=== PATIENT | female | born 1965 | race Caucasian/White ===

== ENCOUNTER → 2017-10-31 | Day surgery (SDC) | payer OTHER ==
[2017-10-30 12:31] LABS: BASOPHILS % 0.5 % (0.0-1.0); EOSINOPHILS # (AUTO) 0.1 (0.0-0.4); HEMATOCRIT 39.6 % (34.2-44.1); HEMOGLOBIN 13.3 g/dL (12.0-16.0); LYMPHOCYTES # (AUTO) 1.3 (1.0-3.2); LYMPHOCYTES % 22.2 % (18.0-39.1); MEAN CORPUSCULAR HGB CONC 33.6 g/dL (31-35); MEAN CORPUSCULAR VOLUME 92.3 fL (81-99); MONOCYTES # (AUTO) 0.6 (0.2-0.8); MONOCYTES % 9.1 % (4.4-11.3); NEUTROPHILS # (AUTO) 4.1 (2.1-6.9); PLATELET COUNT 241 x10e3/uL (140-360); RED BLOOD COUNT 4.29 x10e6/uL (3.6-5.1)
[2017-10-30 12:48] LABS: INR 0.96
[2017-10-30 12:49] LABS: PARTIAL THROMBOPLASTIN TIME 29.5 seconds (23.8-35.5)
[2017-10-30 12:59] LABS: ALANINE AMINOTRANSFERASE 13 IU/L (0-55); ALBUMIN 4.3 g/dL (3.5-5.0); ALBUMIN/GLOBULIN RATIO 1.2 (0.8-2.0); ALKALINE PHOSPHATASE 79 IU/L (40-150); ANION GAP 13.5 mmol/L (8-16); BLOOD UREA NITROGEN 10 mg/dL (7-26); BUN/CREATININE RATIO 13 (6-25); CALCIUM 10.2 mg/dL (8.4-10.2); CARBON DIOXIDE 28 mmol/L (22-29); CHLORIDE 103 mmol/L (98-107); CREATININE, SERUM 0.79 mg/dL (0.57-1.11); EST GLOMERULAR FILTRATION RATE > 60 ML/MIN (60-); GLUCOSE 93 mg/dL (74-118); POTASSIUM 4.5 mmol/L (3.5-5.1); SODIUM 140 mmol/L (136-145)
[~2017-10-31] MED LIST: ACETAMINOPHEN 1000 MG/100 ML 100 ML IV ONE; ACETAMINOPHEN 1000 MG/100 ML IV ONE; AMBIEN5 MG PO; BACITRACIN 50,000 UNIT VIAL ONE; BUPIVACAINE 0.25% 30ML SDV INJ ONE; CALCIUM 600 +1 EAC2 PO; CEFAZOLIN SOD 1 GM VIAL ONE; CYCLOBENZAPRINE5 MG PO; DEXAMETHASONE SOD PHOS INJ 4 MG/ML VIAL ONE; DIPHENHYDRAMINE HCL INJ 50 MG/ML VIAL ONE; EPINEPHRINE HCL INJ 1 MG/ML AMP ONE; FENTANYL CITRATE/PF 100MCG/2 ML INJ ONE; HYDROMORPHONE 1MG/1ML INJ ONE; LIDOCAINE HCL 1% 30ML-PF VIAL ONE; LIDOCAINE HCL 2% LOCAL INJ 5 ML SDV VIAL INJ ONE; MEPERIDINE HCL INJ 50 MG/ML INJ ONE; MIDAZOLAM HCL 2 MG/2 ML VIAL ONE; NUCYNTA50 MG PO; ONDANSETRON HCL INJ 2 MG/ML VIAL ONE; PROPOFOL IV EMULSION 10 MG/ML 20 ML VIAL ONE; SEVOFLURANE INHAL SOLN 250 ML PEN BTL ONE; XANAX0.5 MG PO
--- NOTE | 2017-11-03 13:37 | Operative Report ---
DATE OF PROCEDURE: October 31, 2017 PREOPERATIVE DIAGNOSES 1. History of breast cancer. 2. Acquired absence of bilateral breasts. 3. Capsular contracture, right breast. POSTOPERATIVE DIAGNOSES 1. History of breast cancer. 2. Acquired absence of bilateral breasts. 3. Capsular contracture, right breast. PROCEDURES PERFORMED 1. Exchange of bilateral tissue expanders with permanent cohesive silicone gel breast implants, [place] mammary gel, extra smooth, high profile extra, 560 mL. SN number on the right [id number]. SN number on the left [id number]. 2. Bilateral capsulotomies. 3. Revision of bilateral breast reconstruction. ANESTHESIA: General endotracheal. INDICATIONS FOR SURGERY: This is a 52-year-old female who was diagnosed with breast cancer last year, and underwent bilateral mastectomies and immediate reconstruction with tissue expanders and AlloDerm. The patient subsequently had radiation to the right breast, and is currently presenting for exchange of bilateral tissue expanders with permanent cohesive silicone gel breast implants, bilateral capsulotomies and revision of bilateral breast reconstruction. The risks, alternatives and possible complications of the above procedure were explained to the patient. These include, but are not limited to bleeding, infection, scarring, skin flap necrosis, capsule contracture, breast asymmetry, exposure or failure of silicone cohesive gel implants, wound dehiscence, unsatisfactory aesthetic result, and possible need for further surgery. The patient had an opportunity to ask questions and have her questions answered, and agreed to proceed with the proposed procedure. PROCEDURE IN DETAIL: The patient was marked in the preoperative holding area by Dr. Espinosa. She was then taken to the operating room and placed supine on the operating table. After adequate general anesthesia, the patient's bilateral breasts were prepped and draped in the usual surgical fashion. Attention was then turned first to the patient's right breast, which was the breast that had the radiation and also had extensive capsular contracture on that side. An incision was made along the previous mastectomy incision with a #15 blade. Tissue was dissected down to breast capsule with the help of the Bovie. The tissue wire mesh filter fabricator was deflated and removed. Extensive medial and superior capsulotomy was performed on the right breast capsule with the help of the Bovie, Isaiah and Norman retractor, as well as headlight. A portion of the breast capsule on the right side had to be removed because it was extremely dense in order to allow the pocket to expand and accommodate the new silicone gel implant. The removed capsule was sent to pathology for permanent. The breast pocket was irrigated with normal saline with antibiotic solution and checked for hemostasis. Revision of right breast reconstruction was performed by closing part of the pocket that had extended laterally into the axilla with interrupted 2-0 PDS sutures. After the revision of the right breast reconstruction, a sizer was placed in the breast pocket to ensure that it can accommodate the new silicone gel breast implant. A 560 mL cohesive silicone gel breast implant, extra, was then placed in the pocket. Attention was turned to the opposite breast. A similar procedure was performed thereby making an incision along the mastectomy incision with a #15 blade deflating and removing the tissue wire mesh filter fabricator, and then extensive medial and superior capsulotomy was performed with the help of the Isaiah Mantilla and Norman retractor, as well as headlight. Revision of left breast reconstruction was then performed by placing a row of interrupted 2-0 PDS sutures to close the lateral breast pocket, and ensure symmetry between the 2 breasts since the breast pocket was more stretched on the left side. The breast pocket was then irrigated with normal saline with antibiotic solution and checked for hemostasis. The 560 mL mammary silicone gel cohesive implant, extra, was then placed in the pocket. The patient was placed in the sitting position, and the 2 breasts were checked for symmetry. They appeared to be symmetric. The breast pocket was then closed on both sides with 2 layers of interrupted 3-0 Vicryl sutures, and a running subcuticular 3-0 PDS suture. At the end of the case, the 2 breasts appeared to be symmetric. All skin flaps appeared viable. Xeroform was placed along both incisions. Both breasts were covered with ABD pads and a surgical bra was placed on the patient. She tolerated the procedure well. There were no immediate complications. The needle and instrument count was correct at the end of the case. She was transferred extubated to the recovery room. Job#: [id number] [id number]
== END | disposition home or self-care (01) ==
LOC: OR 05:44
PROVIDERS: ATTEND Plastic Surgery
DX: T85.44XA Capsular contracture of breast implant, initial encounter (principal); Z85.3 Personal history of malignant neoplasm of breast; Z90.13 Acquired absence of bilateral breasts and nipples; G43.909 Migraine, unspecified, not intractable, without status migrainosus; F41.9 Anxiety disorder, unspecified; Y83.4 Other reconstructive surgery as the cause of abnormal reaction of the patient, or of later complication, without mention of misadventure at the time of the procedure; Z91.048 Other nonmedicinal substance allergy status; Z01.810 Encounter for preprocedural cardiovascular examination; Z01.812 Encounter for preprocedural laboratory examination; Z92.3 Personal history of irradiation; Z98.1 Arthrodesis status
CPT/HCPCS: 19342; 36415; 80053; 84702; 85025; 85610; 85730; 88304; 93005; J0690; J1100; J1170; J1200; J2001; J2175; J2250; J2405; J0171

== ENCOUNTER 2018-04-03 09:08 | Observation (INO) | payer OTHER ==
[~2018-04-03] VITALS: Ht 162.6 cm; Wt 76.2 kg
--- OUTSIDE RECORDS SUMMARY | 2018-04-03 07:35 | XMS REPORT | Continuity of Care Document ---
Author Author [facility] Interface Address Unknown Phone Unavailable Problems Problem Status Onset Date Classification Date Reported Comments Source UNK Active 12/31/2016 [facility] N63 - UNSPECIFIED LUMP IN BREAST Active 06/18/2016 [facility] BACK PAIN, 722.52 Active 05/04/2013 [facility] SENT BY DOCTOR Active 09/19/2012 [facility] Anxiety Active Problem 03/08/2017 [facility] FH: mastectomy Active Problem 03/08/2017 [facility] Headache Active Problem 03/08/2017 [facility] Breast cancer Active Problem 03/08/2017 [facility] Medications Medication Details Route Status Patient Instructions Ordering Provider Order Date Source Ancef 2 gm, 100 mL, Route: IVPB, Drug form: INJ, Q8H, Dosing Weight 75, kg, Start date: 01/17/17 20:00:00 CDT, Duration: 1 day, Stop date: 01/18/17 12:00:00 CDT, ABX Indication: Surgical ProphylaxisNotes: Same as: Ancef No Longer Active 01/18/2017 [facility] Senokot S 1 tab, Route: PO, Drug Form: TAB, Dosing Weight 75, kg, BID, Start date: 01/17/17 17:00:00 CDT, Duration: 30 day, Stop date: 02/16/17 9:00:00 CSTNotes: (Same as Senokot-S) Equiv. to Dacia-Colace. No Longer Active 01/17/2017 [facility] Valium 5 mg, 1 tab, Route: PO, Drug form: TAB, Q8H, Dosing Weight 75, kg, Start date: 01/17/17 16:00:00 CDT, Duration: 30 day, Stop date: 02/16/17 8:00:00 CSTNotes: (Same as: Valium) No Longer Active 01/17/2017 [facility] morphine Sulfate 4 mg, 1 mL, Route: IVP, Drug form: SOLN, Q2H, PRN Pain Score 7-10, Start date: 01/17/17 15:33:00 CDT, Duration: 30 day, Stop date: 02/16/17 15:32:00 CSTNotes: (Same as:MORPhine Sulfate) No Longer Active 01/17/2017 [facility] JÚNIOR flumazenil 0.2 mg, Route: IVP, PRN, Dosing Weight 75, kg, PRN Benzodiazepine Reversal, Initial dose, Start date: 01/17/17 14:30:00 CDT, Duration: 30 day, Stop date: 02/16/17 13:29:00 VISUAL DISPLAY MANAGER [facility], Route: IVP, Q2MIN, Dosing Weight 75, kg, PRN Narcotic Reversal, Start date: 01/17/17 14:30:00 CDT, Duration: 8 doses or times, Stop date: Limited # of times Inactive [facility] 12.5 mg, Route: IVP, Q30Min, Dosing Weight 75, kg, PRN Other -See Comment, For shivering, Start date: 01/17/17 14:30:00 CDT, Duration: 2 doses or times, Stop date: Limited # of times Inactive [facility]/17[facility] mg, Route: IVP, ONCE, Dosing Weight 75, kg, PRN Nausea & Vomiting, Start date: 01/17/17 14:30:00 CDT Inactive 01/17/2017 [facility] promethazine 6.25 mg, Route: IVPB, ONCE, Dosing Weight 75, kg, PRN Nausea & Vomiting, Start date: 01/17/17 14:30:00 CDT Inactive [facility] HYDR[facility]orphone 0.5 mg, Route: IVP, Q5Min, Dosing Weight 75, kg, PRN Pain Score 7-10, Start date: 01/17/17 14:30:00 CDT, Duration: 4 doses or times, Stop date: Limited # of times Inactive [facility] fenta[facility]L 50 microgram, Route: IVP, Q5Min, Dosing Weight 75, kg, PRN Pain Score 7-10, Priority: Routine, Start date: 01/17/17 14:30:00 CDT, Duration: 2 doses or times, Stop date: Limited # of times Inactive 01/17/2017 [facility] oxyCODONE 5 mg, Route: PO, Drug form: TAB, Q4H, Dosing Weight 75, kg, PRN Pain Score 4-6, Start date: 01/17/17 14:30:00 CDT, Duration: 30 day, Stop date: 02/16/17 14:29:00 VISUAL DISPLAY MANAGER Inactive 01/17/2017 [facility] hydrALAZINE 10 mg, Route: IVP, Q20Min, Dosing Weight 75, kg, PRN Elevated BP, Start date: 01/17/17 14:30:00 CDT, Duration: 2 doses or times, Stop date: Limited # of times Inactive 01/17/2017 [facility] labetalol 10 mg, Route: IVP, Q5Min, Dosing Weight 75, kg, PRN Elevated BP, Start date: 01/17/17 14:30:00 CDT, Duration: 5 doses or times, Stop date: Limited # of times Inactive 01/17/2017 [facility] morphine Sulfate 2 mg, Route: IVP, Q5Min, Dosing Weight 75, kg, PRN Pain Score 4-6, Start date: 01/17/17 14:30:00 CDT, Duration: 5 doses or times, Stop date: Limited # of times Inactive 01/17/2017 [facility] neostigmine (ANES) Route: IV, Drug form: INJ, ONCE, Stop date: 01/17/17 14:20:00 CDT Inactive 01/17/2017 [facility] dexamethasone (ANES) Route: IV, Drug form: INJ, ONCE, Stop date: 01/17/17 14:16:00 CDT Inactive 01/17/2017 [facility] ondansetron (ANES) Route: IV, Drug form: INJ, ONCE, Stop date: 01/17/17 14:16:00 CDT Inactive 01/17/2017 [facility] acetaminophen-hydrocodone 325 mg-5 mg oral tablet 2 tab, Route: PO, Drug Form: TAB, Dosing Weight 75, kg, Q4H, PRN Pain Score 4-6, Start date: 01/17/17 13:54:00 CDT, Duration: 30 day, Stop date: 02/16/17 13:53:00 CSTNotes: (Same as: [place] 325/5) Do not exceed 4gm/day of acetaminophen. No Longer Active 01/17/2017 [facility] morphine Sulfate 2 mg, 1 mL, Route: IVP, Drug form: SOLN, Q2H, Dosing Weight 75, kg, PRN Pain Score 4-6, Start date: 01/17/17 13:51:00 CDT, Duration: 30 day, Stop date: 02/16/17 13:50:00 VISUAL DISPLAY MANAGER No Longer Active 01/17/2017 [facility] acetaminophen 650 mg, 2 tab, Route: PO, Drug form: TAB, Q4H, Dosing Weight 75, kg, PRN For Temp > 100.4 F, Start date: 01/17/17 13:26:00 CDT, Duration: 30 day, Stop date: 02/16/17 13:25:00 CSTNotes: Do not exceed 4 gm/day. (Same as: Tylenol) No Longer Active 01/17/2017 [facility] ondansetron 4 mg, 2 mL, Route: IVP, Drug form: INJ, Q8H, Dosing Weight 75, kg, PRN Nausea & Vomiting, Start date: 01/17/17 13:26:00 CDT, Duration: 30 day, Stop date: 02/16/17 13:25:00 CSTNotes: (Same as: Zofran) MEDICATION WASTE Product Size: 4 mg Product Wasted: ___ mg No Longer Active 01/17/2017 [facility] diphenhydrAMINE 25 mg, 1 tab, Route: PO, Drug form: TAB, Q6H, Dosing Weight 75, kg, PRN Itching, Start date: 01/17/17 13:26:00 CDT, Duration: 30 day, Stop date: 02/16/17 13:25:00 VISUAL DISPLAY MANAGER No Longer Active 01/17/2017 [facility] D5W 1/2NS + KCL 20mEq/L 1000ml (Premix) 1,000 mL 1,000 mL, Rate: 75 ml/hr, Infuse over: 13.3 hr, Route: IV, Dosing Weight 75 kg, Total Volume: 1,000, Start date: 01/17/17 13:18:00 CDT, Stop date: 01/18/17 13:17:00 CDTNotes: PREMIX IV - Do Not Alter WASTE: F/P - Sink; E - Municipal Trash Bin No Longer Active 01/17/2017 [facility] glycopyrrolate (ANES) Route: IV, Drug form: INJ, ONCE, Stop date: 01/17/17 13:06:00 CDT Inactive 01/17/2017 [facility] famotidine (ANES) Route: IV, Drug form: INJ, ONCE, Stop date: 01/17/17 12:26:00 CDT Inactive 01/17/2017 [facility] hydromorphone (ANES) Route: IV, Drug form: INJ, ONCE, Stop date: 01/17/17 12:06:00 CDT Inactive 01/17/2017 [facility] phenylephrine (ANES) Route: IV, Drug form: INJ, ONCE, Stop date: 01/17/17 11:56:00 CDT Inactive 01/17/2017 [facility] midazolam (ANES) Route: IV, Drug form: SOLN, ONCE, Stop date: 01/17/17 11:51:00 CDT Inactive 01/17/2017 [facility] lidocaine (ANES) Route: IV, Drug form: INJ, ONCE, Stop date: 01/17/17 11:51:00 CDT Inactive 01/17/2017 [facility] fentaNYL (ANES) Route: IV, Drug form: INJ, ONCE, Stop date: 01/17/17 11:51:00 CDT Inactive 01/17/2017 [facility] ceFAZolin (ANES) Route: IV, Drug form: INJ, ONCE, Stop date: 01/17/17 11:51:00 CDT Inactive 01/17/2017 [facility] rocuronium (ANES) Route: IV, Drug form: INJ, ONCE, Stop date: 01/17/17 11:51:00 CDT Inactive 01/17/2017 [facility] propofol (ANES) Route: IV, Drug form: INJ, ONCE, Stop date: 01/17/17 11:51:00 CDT Inactive 01/17/2017 [facility] LR 1000 mL INJ (ANES) Route: IV, Total Volume: 1,000, Start date: 01/17/17 11:01:00 CDT, Stop date: 01/17/17 12:01:00 CDT Inactive 01/17/2017 [facility] Ofirmev 1,000 mg, Route: IV, ONCE, Dosing Weight 75, kg, Start date: 01/17/17 9:05:00 CDT, Stop date: 01/17/17 9:05:00 CDT Inactive 01/17/2017 [facility] isosulfan blue 10 mg, 1 mL, Route: SUB-Q, Drug form: INJ, ONCALL, Dosing Weight 75, kg, PRN Other -See Comment, Priority: STAT, Start date: 01/17/17 8:11:00 CDT, Duration: 30 day, Stop date: 02/16/17 7:10:00 CSTNot es: (Same as:Lymphazurin) MEDICATION WASTE Product Size: 50 mg Product Wasted: ___ mg Inactive 01/17/2017 [facility] Lactated Ringers 1,000 mL 1,000 mL, Rate: 25 ml/hr, Infuse over: 40 hr, Route: IV, Dosing Weight 75 kg, Total Volume: 1,000, Start date: 01/17/17 7:59:00 CDT, Duration: 1 day, Stop date: 01/18/17 7:58:00 CDT Inactive 01/17/2017 [facility] Prevacid 30 mg, PO, Daily, # 15 cap, 0 Refill(s) No Longer Active 01/08/2017 [facility] Fioricet 300 mg-50 mg-40 mg oral capsule 1 cap, PO, Q4H, 0 Refill(s) No Longer Active 01/08/2017 [facility] Ambien 10 mg oral tablet 10 mg=1 tab, PO, Bedtime, 0 Refill(s) No Longer Active 01/08/2017 [facility] Robaxin 500 mg oral tablet 1,000 mg=2 tab, PO, QID, 0 Refill(s) No Longer Active 01/08/2017 [facility] tramadol 50 mg oral tablet 50 mg=1 tab, PO, Q4H, 0 Refill(s) No Longer Active 01/08/2017 [facility] Xanax 0.25 mg oral tablet 0.25 mg=1 tab, PO, TID, 0 Refill(s) No Longer Active 01/08/2017 [facility] morphine Sulfate 6 mg, 1.5 mL, Route: IVP, Drug form: INJ, ONCE, Dosing Weight 56.818, kg, Priority: STAT, Start date: 09/20/12 3:12:00, Stop date: 09/20/12 3:12:00 IVP No Longer Active [facility] 09/20/2012 [facility] Omnipaque 350mg/ml 86 mL, Route: IVP, Drug Form: SOLN, Dosing Weight 56.818, kg, ONCALL, STAT, Start date: 09/19/12 23:25:00, Duration: 1 doses or times, Dose=2.2ml/kg, Max [id number] -- "To be infused by Radiology Staff ONLY"Dose=2.2ml/kg, Max [id number] -- "To be infused by Radiology Staff ONLY" IVP No Longer Active [facility] 09/20/2012 [facility] morphine Sulfate 4 mg, Route: IVP, Drug form: INJ, ONCE, Dosing Weight 56.818, kg, Priority: STAT, Start date: 09/19/12 22:14:00, Stop date: 09/19/12 22:14:00 IVP No Longer Active [facility] 09/20/2012 [facility] Allergies, Adverse Reactions, Alerts Substance Category Reaction Severity Reaction type Status Date Reported Comments Source Immunizations Immunization Date Given Site Status Last Updated Comments Source Results Order Name Results Value Reference Range Date Interpretation Comments Source Bone Density DXA Dual Energy MA Bone Density DXA Dual [employer] MA BONE DENSITY ASSESSMENT: 03/05/2017 CLINICAL DATA: Perimenopausal. /C50.411 Malignant Neoplasm Of Upper-Outer Quadrant Of Right Female Breast RISK FACTORS: race. FINDINGS: Bone density evaluation was performed 03/05/2017 on the right femur neck using a Hologic unit. The BMD average for the exam is 0.537 g/cm2. The T-score is -2.80 and the Z-score is -2.10. These values indicate 70.0% for age-matched controls. This matches the World Health Organization's criteria for osteoporosis and places the patient at a high risk for fracture. An additional bone density evaluation was performed 03/05/2017 on the left femur neck using a Hologic unit. The BMD average for the exam is 0.505 g/cm2. The T- score is -3.10 and the Z-score is -2.40. These values indicate 66.0% for age- matched controls. This matches the World Health Organization's criteria for osteoporosis and places the patient at a high risk for fracture. An additional bone density evaluation was performed 03/05/2017 on the right hip using a Hologic unit. The BMD average for the exam is 0.737 g/cm2. The T-score is -1.70 and the Z-score is -1.20. These values indicate 83.0% for age-matched controls. This matches the World Health Organization's criteria for osteopenia and places the patient at a medium risk for fracture. An additional bone density evaluation was performed 03/05/2017 on the left hip using a Hologic unit. The BMD average for the exam is 0.730 g/cm2. The T-score is -1.70 and the Z-score is -1.30. These values indicate 82.0% for age-matched controls. This matches the World Health Organization's criteria for osteopenia and places the patient at a medium risk for fracture. An additional bone density evaluation was performed 03/05/2017 on the AP L1-L3 region of spine using a Hologic unit. The BMD average for the exam is 0.759 g/cm2. The T-score is -2.40 and the Z-score is -1.70. These values indicate 81.0% for age-matched controls. This matches the World Health Organization's criteria for osteopenia and places the patient at a medium risk for fracture. IMPRESSION: OSTEOPOROSIS Patient is at high risk for fracture. Patient consult w/primary care provider is recommended. This exam was interpreted at [id number] for [facility]. Horacio Valdez M.D. bf/penrad:03/06/2017 09:03:26 Displayer(s): Zoie Almeida [employer] [facility] 03/05/2017 - - Read by: Horacio Valdez MD Dictated Date/time: 03/06/17 09:03 Electronically Signed by: Horacio Valdez MD 03/06/17 09:03 FINAL REPORT [facility] URINE CHEM U Preg Negative (01/17/17 8:01 AM) Negative 01/17/2017 [facility] Breast Complete Uni US Breast Complete Uni US #[id number] - BREAST MAMMO DIAG UNI INCL CAD MA/R #[id number] - BREAST COMPLETE UNI US/R COMPLETE ULTRASOUND OF RIGHT BREAST AND AXILLA: 12/25/2016 CLINICAL: HISTORY: 51 yo female presents for RIGHT mammogram and same day MRI to assess end response to chemotherapy. Her last round of chemotherapy was 12/18/16. PLEASE SEE SAME DAY MRI REPORT. The patient has the following family history of breast cancer: mother at 33 and (p) great aunt. Patient has no history of prior breast surgeries or biopsies. Amenorrhea secondary to chemotherapy. C50.411 Malignant Neoplasm Of Upper-Outer Quadrant Of Right Female Breast Family history of breast cancer includes: Mother at age 32. Comparison is made to exams dated: 10/19/2016 ultrasound, 10/19/2016 mammogram, 06/21/2016 ultrasound biopsy, 06/20/2016 ultrasound, 06/20/2016 breast MRI, and 06/18/2016 ultrasound - [facility]. RIGHT BREAST FINDINGS: The entire right breast was evaluated including all four quadrants, axillary tail, retroareolar region and axilla. There is a very subtle 1.0 x 0.7 x 0.7 cm residual hypoechoic lesion at 11:00, 2 cm FN. No new abnormalities that would be suspicious for malignancy were identified. RIGHT JAYLA BASINS: No axillary, supraclavicular, infraclavicular, or internal mammary adenopathy identified. IMPRESSION: KNOWN BIOPSY PROVEN MALIGNANCY 1. END NEOADJUVANT IMAGING SHOWS FINDINGS COMPATIBLE WITH NEAR COMPLETE RESPONSE. 2. NO SUSPICIOUS ADENOPATHY. RECOMMENDATION: 1. CONTINUED TREATMENT PLANNING PER DR. FRENHC AND DR. HENRIQUEZ. I personally reviewed the imaging findings and recommendations with the patient. Kayla Haas M.D. sg/:12/28/2016 12:16:24 Displayer(s): Juju Browne R.D.M.S, [facility]; Arlette Lua, [facility] This exam was dictated and interpreted by [id number] for [facility]. letter sent: BI-RADS 6 Ultrasound BI-RADS: 6 Known biopsy proven malignancy 12/25/2016 - - Read by: Kayla Haas MD Dictated Date/time: 12/28/16 12:16 Electronically Signed by: Kayla Haas MD 12/28/16 12:16 FINAL REPORT [facility] Breast Mammo Diag UNI incl CAD MA Breast Mammo Diag UNI incl CAD MA #[id number] - BREAST MAMMO DIAG UNI INCL CAD MA/R #[id number] - BREAST COMPLETE UNI US/R UNILATERAL RIGHT DIGITAL DIAGNOSTIC MAMMOGRAM WITH CAD: 12/25/2016 CLINICAL: HISTORY: 51 yo female presents for RIGHT mammogram and same day MRI to assess end response to chemotherapy. Her last round of chemotherapy was 12/18/16. PLEASE SEE SAME DAY MRI REPORT. The patient has the following family history of breast cancer: mother at 33 and (p) great aunt. Patient has no history of prior breast surgeries or biopsies. Amenorrhea secondary to chemotherapy. C50.411 Malignant Neoplasm Of Upper-Outer Quadrant Of Right Female Breast Family history of breast cancer includes: Mother at age 32. Current study was evaluated with a Computer Aided Detection (CAD) system. Comparison is made to exams dated: 10/19/2016 ultrasound, 10/19/2016 mammogram, 06/21/2016 ultrasound biopsy, 06/20/2016 ultrasound, 06/20/2016 breast MRI, and 06/18/2016 ultrasound - [facility]. The tissue of right breast is heterogeneously dense, which could obscure detection of small masses. The R-shaped biopsy marking clip in the 11:00 position, middle depth, remains in place. Compared to the pre therapy study dated 06/20/16, the mass has essentially resolved and the parenchymal pattern has a more comparable appearance to the 07/05/2015 exam. Also, the nipple areolar complex is no longer retracted. No adenopathy is visualized. IMPRESSION: KNOWN BIOPSY PROVEN MALIGNANCY PLEASE SEE SAME DAY ULTRASOUND REPORT. Kayla Haas M.D. sg/:12/28/2016 12:16:24 Displayer(s): Juju Browne R.D.M.S, [facility]; Arlette Lua, [facility] This exam was dictated and interpreted by [id number] for [facility]. letter sent: BI-RADS 6 Mammogram BI-RADS: 6 Known biopsy proven malignancy 12/25/2016 - - Read by: Kayla Haas MD Dictated Date/time: 12/28/16 12:16 Electronically Signed by: Kayla Haas MD 12/28/16 12:16 FINAL REPORT [facility] Breast w/wo contrast bilat MRI Breast w/wo contrast bilat MRI #[id number] - BREAST W/WO CONTRAST BILAT MRI BREAST MRI OF BOTH BREASTS : 12/25/2016 CLINICAL: HISTORY: 51 yo female presents for MRI to assess end response to chemotherapy. Her last round of chemotherapy was 12/18/16. PLEASE SEE PRE THERAPY MRI REPORT 06/20/16. The patient has the following family history of breast cancer: mother at 33 and (p) great aunt. Patient has no history of prior breast surgeries or biopsies. Amenorrhea secondary to chemotherapy. COMPARISON: Comparison is made to exams dated: MRI, 06/20/16; 12/25/2016 mammogram, 10/19/2016 ultrasound, 10/19/2016 mammogram, 06/21/2016 ultrasound biopsy, and 06/20/2016 ultrasound - [facility]. INFORMED CONSENT: The procedure was explained to the patient including possible risks, benefits, complications and alternatives. The patient understood and desired to proceed. She took 10 mg of Valium, p.o., at 1313 hours, prior to the start of the breast MRI. The patient tolerated the procedure well and left [facility] in good condition with a special events driver. PRE GADOLINIUM CONTRAST INJECTION LABORATORY TESTING: Prior to the injection of gadolinium contrast, the patient's creatinine and GFR were assessed with the I-STAT DEVICE. Creatinine measured 0.6 mg/dL and [id number]. The patient's values fall within normal limits for age and weight. These values are considered within tolerance and safe for injection. TECHNIQUE: High resolution 1.4 mm RODEO plus, axial acquisitions were obtained of both breasts using an [employer] 1.5 Mary dedicated breast MRI preceding and following the administration of 15 cc's of Multihance, subtraction, 2D and 3D maximum intensity projections (MIP), multiplanar reconstructions (MPR) and GAY Time Activity curves were performed on the Physician's Review Station with Post-i. MRI FINDINGS: RIGHT BREAST FINDINGS: The malignant mass has resolved. However, there is minimal residual persistent enhancement for which microscopic residual disease cannot be excluded. The marking clip with aritifact is demonstrated on image #71. The nipple-areolar complex is no longer retracted. The axillary adenopathy has resolved and the visualized lymph nodes appear architecturally preserved. The chest wall structures appear normal. No internal mammary adenopathy. LEFT BREAST FINDINGS: I do not identify any definite evidence of spiculated or linear beaded enhancement to suggest malignancy. The nipple-areolar complex appears to be unremarkable. The visualized lymph nodes appear architecturally preserved. The chest wall structures appear normal. No internal mammary adenopathy. IMPRESSION: KNOWN BIOPSY PROVEN MALIGNANCY 1. END NEOADJUVANT CHEMOTHERAPY MRI FINDINGS COMPATIBLE WITH NEAR COMPLETE RESPONSE. 2. THERE IS NO DEFINITE MRI EVIDENCE TO SUGGEST MALIGNANCY INVOLVING THE LEFT BREAST. 3. NO SUSPICIOUS ADENOPATHY. RECOMMENDATION: 1. CONTINUED TREATMENT PLANNING PER DR. FRENCH AND DR. HENRIQUEZ. Kayla Haas M.D. sg/:12/28/2016 12:17:54 Displayer(s): Afua Weinstein, [facility] This exam was dictated and interpreted by [id number] for [facility]. MRI BI-RADS: 6 Known biopsy proven malignancy 12/25/2016 - - Read by: Kayla Haas MD Dictated Date/time: 12/28/16 12:17 Electronically Signed by: Kayla Haas MD 12/28/16 12:17 FINAL REPORT [facility] Breast Complete Uni US Breast Complete Uni US - BREAST COMPLETE UNI US/R ULTRASOUND OF RIGHT BREAST: 10/19/2016 CLINICAL: /C50.411 Malignant Neoplasm Of Upper-Outer Quadrant Of Right Female Breast. Right breast cancer diagnosed 06.20.2016. Has been on chemo. FHX=mother at 32. Comparison is made to exams dated: 06/18/2016 mammogram - [facility], 06/14/2016 mammogram - [facility], 07/05/2015 mammogram - [facility], 07/30/2013 mammogram and 05/23/2010 mammogram - [facility]. Real-time ultrasound of the right breast was performed. The entire right breast was evaluated including all four quadrants subareolar region, axilla, and axillary tail. There are no abnormal-appearing lymph nodes in the right axilla. There is a mass in the right breast at 11 o'clock anterior depth. This mass is hypoechoic. This abnormality is decreased in size. Color flow imaging demonstrates that there is no vascularity present. This finding measures 2.2 x 2.2 x 2.0 cm vs 4.5 x 2.7 x 1.5 cm on 06.18.2016. IMPRESSION: KNOWN BIOPSY PROVEN MALIGNANCY On ultrasound, the biopsy proven malignant mass in the right breast has decreased in size, measuring 2.2 x 2.2 x 2.0 cm vs 4.5 x 2.7 x 1.5 cm on 06.18. On mammogram, there is architectural distortion in the right breast at 11 o'clock anterior depth, less dense centrally due to decreased in size of the mass as seen on ultrasound, but the surrounding archictectural distortion is unchanged. There are no abnormal-appearing lymph nodes in the right axilla. Treatment planning per Dr. French is recommended. Luis Fernando Cooper M.D. mt/:10/19/2016 12:25:19 Displayer: Amanda Echevarria, [facility] This exam was dictated and interpreted by [id number] for [facility]. letter sent: Birdejuan 6 Ultrasound BI-RADS: 6 Known biopsy proven malignancy 10/19/2016 - - Read by: Luis Fernando Cooper MD Dictated Date/time: 10/19/16 12:25 Electronically Signed by: Luis Fernando Cooper MD 10/19/16 12:25 FINAL REPORT [facility] Breast Mammo Diag UNI incl CAD MA Breast Mammo Diag UNI incl CAD MA - BREAST MAMMO DIAG UNI INCL CAD MA/R UNILATERAL RIGHT DIGITAL DIAGNOSTIC MAMMOGRAM WITH CAD: 10/19/2016 CLINICAL: /C50.411 Malignant Neoplasm Of Upper-Outer Quadrant Of Right Female Breast. Additional History: Please see same-day ultrasound report Current study was evaluated with a Computer Aided Detection (CAD) system. Comparison is made to exams dated: 06/18/2016 mammogram - [facility], 06/14/2016 mammogram - [facility], 07/05/2015 mammogram - [facility], 07/30/2013 mammogram and 05/23/2010 mammogram - [facility]. The tissue of the right breast is heterogeneously dense, which could obscure detection of small masses. There is architectural distortion in the right breast at 11 o'clock anterior depth, less dense centrally due to decreased in size of the mass as seen on ultrasound, but the surrounding archictectural distortion is unchanged. IMPRESSION: KNOWN BIOPSY PROVEN MALIGNANCY There is architectural distortion in the right breast at 11 o'clock anterior depth, less dense centrally due to decreased in size of the mass as seen on ultrasound, but the surrounding archictectural distortion is unchanged. PLEASE SEE SAME DAY ULTRASOUND REPORT. Luis Fernando Cooper M.D. mt/:10/19/2016 12:25:19 Displayer: Amanda Echevarria, [facility] This exam was dictated and interpreted by [id number] for [facility]. letter sent: Norbert 6 Mammogram BI-RADS: 6 Known biopsy proven malignancy 10/19/2016 - - Read by: Luis Fernando Cooper MD Dictated Date/time: 10/19/16 12:25 Electronically Signed by: Luis Fernando Cooper MD 10/19/16 12:25 FINAL REPORT [facility] Breast Limited Sergio US Breast Limited Sergio US - BREAST LIMITED SERGIO US ULTRASOUND OF BOTH BREASTS- JAYLA BASIN: 06/20/2016 CLINICAL: HISTORY: 50 yo female with history of palpable mass in the RIGHT breast associated with nipple retraction. Diagnostic imaging on 06/18/16 showed a poorly defined 4.5 cm mass and suspicious RIGHT axillay lymph nodes. The patient has the following family history of breast cancer: mother at 33 and (p) great aunt. Patient has no history of prior breast surgeries or biopsies. PLEASE SEE SAME DAY MRI REPORT. Comparison is made to exams dated: 06/18/2016 ultrasound, 06/18/2016 mammogram - [facility], 06/14/2016 mammogram, 06/14/2016 ultrasound - [facility], 07/05/2015 mammogram - [facility] and 07/30/2013 mammogram - [facility]. RIGHT JAYLA BASINS: No infraclavicular, supraclaviclar or internal mammary adenopathy identified. Multiple prominent axillary nodes with cortical thickening and several smaller nodes with loss of fatty divya are again identified. FINDINGS: Directed imaging of the 3:00 region showed only prominent superficial vessels demonstrated with color doppler. No abnormalities identified. IMPRESSION: HIGHLY SUGGESTIVE OF MALIGNANCY - FOLLOW-UP RECOMMENDED 1. MULTIPLE SUSPICIOUS RIGHT AXILLARY NODES. REMAINING RIGHT BREAST JAYLA BASINS SHOWED NO ADENOPATHY. 2. SECOND-LOOK TARGETED LEFT BREAST ULTRASOUND SHOWED ONLY CORRESPONDING VASCULAR STRUCTURES. RECOMMENDATION: 1. SAME DAY RIGHT BREAST AND RIGHT AXILLARY LYMPH NODE BIOPSIES TO FOLLOW. PLEASE SEE SEPARATE REPORTS. Kayla Haas M.D. sg/:06/21/2016 18:15:41 Displayer: Juju Browne R.D.M.S, [facility] This exam was dictated and interpreted by [id number] for [facility]. letter sent: Same Day Ultrasound BI-RADS: 5 Highly suggestive of malignancy 06/20/2016 - - Read by: Kayla Haas MD Dictated Date/time: 06/21/16 18:15 Electronically Signed by: Kayla Haas MD 06/21/16 18:15 FINAL REPORT [facility] Breast BX Uni w Clip Primary Side US Breast BX Uni w Clip Primary Side US - BREAST BX UNI W CLIP PRIMARY SIDE US/R MULTIPLE ULTRASOUND GUIDED BIOPSIES RIGHT BREAST WITH MARKING DEVICES INSERTED AND POST DIGITAL MAMMOGRAPHIC AND ULTRASOUND IMAGIN06/21/2016 CLINICAL: N63 Unspecified Lump In Breast. Correlation is made to exams dated: 06/20/2016 ultrasound, 06/18/2016 ultrasound, 06/18/2016 mammogram - [facility], 06/14/2016 mammogram, 06/14/2016 ultrasound - [facility] and 07/05/2015 mammogram - [facility]. An ultrasound guided biopsy using real-time ultrasound was performed for the 4.5 cm irregular shaped mass located in the right breast at 11 o'clock anterior depth. This was described on the previous mammography and ultrasound reports. The skin was prepped in the usual manner. Topical anesthetic was administered to the access site. A skin ian was made in the breast. A 12 gauge biopsy needle was placed adjacent to the abnormality through an introducer device under ultrasound guidance. Once the needle was documented to be in the correct location, five specimens were obtained using Marquee. A " R " clip was inserted into the biopsy cavity. Post procedure digital mammographic and ultrasound imaging demonstrates the clip at the targeted area. The specimens were sent to the laboratory for pathological analysis. A second ultrasound guided biopsy using real-time ultrasound was performed for the 1.5 cm lymph node located in the right axillary tail. This was described on the previous ultrasound and MRI reports. The skin was prepped in the usual manner. Local anesthetic was administered to the access site. A skin ian was made in the breast. An 18 gauge biopsy needle was placed adjacent to the abnormality under ultrasound guidance. Once the needle was documented to be in the correct location, two specimens were obtained using [employer]. A WING clip was inserted into the biopsy cavity. Post procedure digital mammographic and ultrasound imaging demonstrates the clip at the targeted area. The specimens were sent to the laboratory for pathological analysis. IMPRESSION: ULTRASOUND GUIDED BIOPSY MALIGNANT Ultrasound guided biopsy of the 4.5 cm mass in the right breast at 11 o'clock anterior depth was successful with no apparent immediate post procedure complications. Pathology indicates malignant invasive mammary carcinoma... "invasive mammary carcinoma with an invasive lobular pattern of growth, intermediate nuclear grade, jaz combined histologic grade 2." Pathology results are concordant with imaging findings. Ultrasound guided biopsy of the 1.5 cm lymph node in the right axillary tail was successful with no apparent immediate post procedure complications. 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 "metastatic carcinoma involving jayla tissue." Pathology results are concordant with imaging findings. Treatment planning per Dr. French is recommended. The findings and recommendations were discussed with the patient by myself, and she voiced understanding. 06.22.2016 at 415pm. Luis Fernando Cooper M.D. mt/:06/25/2016 08:17:22 Displayer: Irma Latham R.D.M.S, [facility] This exam was dictated and interpreted by [id number] for [facility] [employer] [facility]. letter sent: Surgical Consult post Biopsy 06/20/2016 - - Read by: Luis Fernando Cooper MD Dictated Date/time: 06/25/16 08:17 Electronically Signed by: Luis Fernando Cooper MD 06/25/16 08:17 FINAL REPORT [facility] Breast w/wo contrast bilat MRI Breast w/wo contrast bilat MRI - BREAST W/WO CONTRAST BILAT MRI BREAST MRI OF BOTH BREASTS : 06/20/2016 CLINICAL: HISTORY: 50 yo female with history of palpable mass in the RIGHT breast associated with nipple retraction. Diagnostic imaging on 06/18/16 showed a poorly defined 4.5 cm mass and suspicious RIGHT axillay lymph nodes. The patient has the following family history of breast cancer: mother at 33 and (p) great aunt. Patient has no history of prior breast surgeries or biopsies. Comparison is made to exams dated: 06/20/2016 ultrasound, 06/18/2016 ultrasound, 06/18/2016 mammogram - [facility], 06/14/2016 mammogram, 06/14/2016 ultrasound - [facility] and 07/05/2015 mammogram - [facility]. INFORMED CONSENT: The procedure was explained to the patient including possible risks, benefits, complications and alternatives. The patient understood and desired to proceed. She then took 0.5 mg of Alprazolam that she brought with her. She left in good condition with a special events driver. TECHNIQUE: High resolution 1.4 mm RODEO plus, axial acquisitions were obtained of both breasts using an [employer] 1.5 Mary dedicated breast MRI preceding and following the administration of 20 cc's of Omniscan, subtraction, 2D and 3D maximum intensity projections (MIP), multiplanar reconstructions (MPR) and GAY Time Activity curves were performed on the Physician's Review Station with Post-i. MRI FINDINGS: RIGHT BREAST FINDINGS: The right breast is smaller than the left breast. The palpable abnormality is associated with a spiculated enhancing mass with washout kinetics that involves the majority of the upper outer quadrant. Anterior enhancing spicules extend to the nipple with secondary retraction of the nipple- areolar complex. The mass measures approximately 8.0 (SI) x 7.0 (AP) x 4.0 cm (ML) with spicules included in measurement. Elsewhere in the right breast, there are no additional abnormal areas of enhancement that would be suspicious for malignancy. No skin enhancement. There are multiple prominent axillary nodes with cortical thickening corresponding to the ultrasound detected adenopathy. No retropectoral (level 2 or 3) nodes are identified. The chest wall structures appear normal. No internal mammary adenopathy. LEFT BREAST FINDINGS: Image #80 shows a probably focus of enhancement due to tortuous vascular structures at 3:00, middle depth but recommend second-look ultrasound. Otherwise, I do not identify any definite evidence of spiculated or linear beaded enhancement to suggest malignancy. The nipple-areolar complex appears to be unremarkable. The visualized lymph nodes appear architecturally preserved. The chest wall structures appear normal. No internal mammary adenopathy. IMPRESSION: HIGHLY SUGGESTIVE OF MALIGNANCY 1. PALPABLE ENHANCING SPICULATED RIGHT BREAST MASS INVOLVES ALMOST THE ENTIRE UPPER OUTER QUADRANT MEASURING APPROXIMATELY 8.0 X 7.0 X 4.0 CM DESCRIBED ABOVE. 2. SUSPICIOUS RIGHT AXILLARY LYMPH NODES. NO RETROPECTORAL (LEVEL II OR III) NODES IDENTIFIED. 3. PROBABLE TORTUOUS VESSELS, LEFT BREAST, 3:00, MIDDLE DEPTH. RECOMMEND SECOND- LOOK ULTRASOUND. RECOMMENDATION: 1. PATIENT IS SCHEDULED FOR SAME DAY RIGHT BREAST CORE BIOPSY AND RIGHT AXILLARY LYMPH NODE BIOPSY. 2. SAME DAY LEFT BREAST SECOND-LOOK ULTRASOUND TO BE PERFORMED. 3. PLEASE SEE SEPARATE REPORTS. Kayla Haas M.D. sg/:06/21/2016 17:45:49 Displayer: Afua Weinstein [facility] This exam was dictated and interpreted by [id number] for [facility]. letter sent: Biopsy MRI BI-RADS: 5 Highly suggestive of malignancy 06/20/2016 - - Read by: Kayla Haas MD Dictated Date/time: 06/21/16 17:45 Electronically Signed by: Kayla Haas MD 06/21/16 17:45 FINAL REPORT [facility] Breast Complete Sergio US Breast Complete Sergio US - BREAST COMPLETE SERGIO US ULTRASOUND OF BOTH BREASTS AND LEFT AXILLA: 06/18/2016 CLINICAL: R92.8 Other Abnormal And Inconclusive Findings On Diagnostic Imaging Of Breast. Comparison is made to exams dated: 06/14/2016 mammogram - [facility], 07/05/2015 mammogram - [facility], 07/30/2013 mammogram and 05/23/2010 mammogram - [facility]. Color flow and real-time ultrasound of both breasts and axillae were performed. Both breasts were evaluated in their entirety including the upper inner, lower inner, upper outer, and lower outer quadrants, as well as the retroareolar region. There is a 4.5 cm x 2.7 cm x 1.5 cm irregular area of altered echogenicity and distortion in the right breast at 11 o'clock middle depth 2 cm from the nipple. This irregular area is hypoechoic. This correlates as palpated and with mammography findings. Several prominent right axillary lymph nodes are present measuring up to 1.5 cm long axis. No suspicious abnormalities were seen sonographically in the left breast or the left axilla. IMPRESSION: HIGHLY SUGGESTIVE OF MALIGNANCY - FOLLOW-UP RECOMMENDED The 4.5 cm x 2.7 cm x 1.5 cm irregular area in the right breast is highly suggestive of malignancy. An ultrasound guided biopsy is recommended. Recommend FNA biopsy of a customer engagement representative prominent right axillary lymph node. No mammographic or sonographic evidence of malignancy in the left breast. I personally [facility] these results and [facility] She expressed understanding and is scheduled to return for biopsy 06/20/16. Sanjuana Garcia M.D. acb/:06/18/2016 14:19:50 Displayer: Amanda Echevarria, [facility] This exam was dictated and interpreted by [id number] for [facility]. letter sent: Biopsy Ultrasound BI-RADS: 5 Highly suggestive of malignancy 06/18/2016 - - Read by: Sanjuana Garcia MD Dictated Date/time: 06/18/16 14:19 Electronically Signed by: Sanjuana Garcia MD 06/18/16 14:19 FINAL REPORT [facility] Breast Mammo Diag SERGIO incl CAD MA Breast Mammo Diag SERGIO incl CAD MA - BREAST MAMMO DIAG SERGIO INCL CAD MA BILATERAL DIGITAL DIAGNOSTIC MAMMOGRAM WITH CAD: 06/18/2016 CLINICAL: R92.8 Other Abnormal And Inconclusive Findings On Diagnostic Imaging Of Breast. Current study was evaluated with a Computer Aided Detection (CAD) system. Comparison is made to exams dated: 06/14/2016 mammogram - [facility], 07/05/2015 mammogram - [facility], 07/30/2013 mammogram and 05/23/2010 mammogram - [facility]. The tissue of both breasts is heterogeneously dense, which could obscure detection of small masses. There is architectural distortion in the right breast at 11 o'clock middle depth. There is nipple retraction associated with the architectural distortion. No other significant masses, calcifications, or other findings are seen in either breast. IMPRESSION: INCOMPLETE: NEEDS ADDITIONAL IMAGING EVALUATION The architectural distortion in the right breast is indeterminate. An ultrasound is recommended and was performed the same day. Sanjuana Garcia M.D. acb/:06/18/2016 14:19:50 Displayer: Amanda Echevarria, [facility] This exam was dictated and interpreted by [id number] for [facility]. letter sent: Biopsy Mammogram BI-RADS: 0 Indeterminate 06/18/2016 - - Read by: Sanjuana Garcia MD Dictated Date/time: 06/18/16 14:19 Electronically Signed by: Sanjuana Garcia MD 06/18/16 14:19 FINAL REPORT [facility] Spine lumbar w/wo contrast MRI Spine lumbar w/wo contrast MRI LUMBAR SPINE MRI CLINICAL HISTORY: Back pain and displacement of lumbar intervertebral disc. TECHNIQUE: Multiplanar, multisequence MR images were acquired with and without IV contrast. COMPARISON IMAGIN09/20/2012 CT FINDINGS: The patient is again noted be status post L4-S1 fusion with dorsal decompression. Metallic susceptibility from anterior and posterior hardware decreases anatomical detail at the surgical levels. No obvious complication is seen. Approximately 5 mm of grade 1 anterolisthesis at L4-L5 persists. Vertebral body heights are maintained. Alignment is otherwise within normal limits. Marrow signal is unremarkable. There is no suspicious enhancement. Conus terminates at L1. Location-specific findings are as follows: T12-L1: Thecal sac and neural foramina are patent. L1-L2: Thecal sac and neural foramina are patent. L2-L3: Thecal sac and neural foramina are patent. L3-L4: Tiny broad-based disc bulge and moderate to severe bilateral facet hypertrophy. Both neural foramina are mildly narrowed. Thecal sac is widely patent. L4-L5: Thecal sac is patent. Neural foramina are suboptimally visualized due to metallic susceptibility artifact. L5-S1: Thecal sac is patent. Again, the neural foramina are suboptimally seen. They are believed to be patent. IMPRESSION: 1. Status post L4-S1 fusion without obvious complication. 2. Grade 1 anterolisthesis at L4-L5. 3. Mild to moderate degenerative changes at L3-L4 with mild bilateral neural foraminal stenosis. 4. No suspicious enhancement is seen. 11/03/2013 - - Read by: Heri Wilkerson MD Dictated Date/time: 11/03/13 14:42 Electronically Signed by: Heri Wilkerson MD 11/03/13 14:53 FINAL REPORT [facility] [place] CHEMISTRY U Preg Negative (09/19/2012 21:59:18) Negative 09/20/2012 Normal [facility] URINALYSIS UA Sq Epi Occasional /LPF (09/19/2012 21:59:05) Few 09/20/2012 Normal [facility] URINALYSIS Micro? Performed (09/19/2012 21:59:05) 09/20/2012 Normal [facility] URINALYSIS UA Bacteria Occasional /HPF (09/19/2012 21:59:05) None Seen 09/20/2012 Normal [facility] URINALYSIS UA RBC 3-5 /HPF *ABN* (09/19/2012 21:59:05) 0 - 2 09/20/2012 ABN [facility] URINALYSIS UA WBC 0-2 /HPF (09/19/2012 21:59:05) None Seen 09/20/2012 Normal [facility] URINALYSIS UA Leuk Est Negative (09/19/2012 21:59:05) Negative 09/20/2012 Normal [facility] URINALYSIS UA Nitrite Negative (09/19/2012 21:59:05) Negative 09/20/2012 Normal [facility] URINALYSIS UA Urobilinogen 0.2 EU/dL 0.1 - 1.0 09/20/2012 Normal [facility] URINALYSIS UA Bili Negative *NA* (09/19/2012 21:59:05) Negative 09/20/2012 NA [facility] URINALYSIS UA Ketones Negative *NA* (09/19/2012 21:59:05) Negative 09/20/2012 NA [facility] URINALYSIS UA Glucose Negative (09/19/2012 21:59:05) Negative 09/20/2012 Normal [facility] URINALYSIS UA Protein Negative (09/19/2012 21:59:05) Negative 09/20/2012 Normal [facility] URINALYSIS UA Blood Trace *ABN* (09/19/2012 21:59:05) Negative 09/20/2012 ABN [facility] URINALYSIS UA Turbidity Clear (09/19/2012 21:59:05) Clear 09/20/2012 Normal [facility] URINALYSIS UA Color Yellow *NA* (09/19/2012 21:59:05) Yellow 09/20/2012 NA [facility] URINALYSIS UA pH 6.0 5.0 - 8.0 09/20/2012 Normal [facility] URINALYSIS UA Spec Grav 1.010 <=1.030 09/20/2012 Normal [facility] CHEMISTRY Lactic Acid Lvl 0.8 mMol/L 0.5 - 2.2 09/20/2012 Normal [facility] CHEMISTRY eGFR 105 mL/min/1.73m2 09/20/2012 NA 1Result Comment: The eGFR is calculated using the CKD-EPI formula. In most young, healthy individuals the eGFR will be >90 mL/min/1.73m2. The eGFR declines with age. An eGFR of 60-89 may be normal in some populations, particularly the elderly, for whom the CKD-EPI formula has not been extensively validated. Use of the eGFR is not recommended in the following populations: Individuals with unstable creatinine concentrations, including patients and those with serious co-morbid conditions. Patients with extremes in muscle mass or diet. The data above are obtained from the National Kidney Disease Education Program (NKDEP) which additionally recommends that when the eGFR is used in patients with extremes of body mass index for purposes of drug dosing, the eGFR should be multiplied by the estimated BMI. [facility] CHEMISTRY Creatinine Lvl 0.7 mg/dL 0.5 - 1.4 09/20/2012 Normal [facility] CHEMISTRY Glucose Lvl 86 mg/dL 70 - 99 09/20/2012 Normal 2Interpretive Data: Adult reference range values reflect the clinical guidelines of the [place] [employer]. [facility] CHEMISTRY BUN 14 mg/dL 7 - 22 09/20/2012 Normal [facility] CHEMISTRY Sodium Lvl 138 meq/L 135 - 145 09/20/2012 Normal [facility] CHEMISTRY Potassium Lvl 4.3 meq/L 3.5 - 5.1 09/20/2012 Normal [facility] CHEMISTRY Chloride Lvl 99 meq/L 95 - 109 09/20/2012 Normal [facility] CHEMISTRY CO2 28 meq/L 24 - 32 09/20/2012 [facility] CHEMISTRY Calcium Lvl 9.0 mg/dL 8.5 - 10.5 09/20/2012 [facility] CHEMISTRY AGAP 15.3 meq/L 10.0 - 20.0 09/20/2012 Normal [facility] HEMATOLOGY MCHC 36.0 g/dL 32.0 - 36.0 09/20/2012 [facility] HEMATOLOGY MCV 87.0 fL 81.0 - 99.0 09/20/2012 [facility] HEMATOLOGY RDW 12.7 % 11.5 - 14.5 09/20/2012 [facility] HEMATOLOGY MCH 31.4 pg 27.0 - 31.0 09/20/2012 [facility] HEMATOLOGY Hct 31.9 % 36.0 - 48.0 09/20/2012 [facility] HEMATOLOGY Hgb 11.5 g/dL 12.0 - 16.0 09/20/2012 [facility] HEMATOLOGY RBC 3.67 M/CMM 4.20 - 5.40 09/20/2012 [facility] HEMATOLOGY WBC 7.5 K/CMM 3.7 - 10.4 09/20/2012 [facility] HEMATOLOGY MPV 7.2 fL 7.4 - 10.4 09/20/2012 [facility] HEMATOLOGY Platelet 395 K/CMM 133 - 450 09/20/2012 [facility] HEMATOLOGY Basophils # 0.0 K/CMM 0.0 - 0.2 09/20/2012 [facility] HEMATOLOGY Monocytes # 0.9 K/CMM 0.0 - 0.8 09/20/2012 [facility] HEMATOLOGY Lymphocytes # 2.0 K/CMM 1.0 - 5.5 09/20/2012 [facility] HEMATOLOGY Segs-Bands # 4.5 K/CMM 1.5 - 8.1 09/20/2012 [facility] HEMATOLOGY Eosinophils # 0.1 K/CMM 0.0 - 0.5 09/20/2012 [facility] HEMATOLOGY Eosinophils 1.8 % 0.0 - 4.0 09/20/2012 [facility] HEMATOLOGY Monocytes 12.5 % 2.0 - 12.0 09/20/2012 [facility] HEMATOLOGY Basophils 0.5 % 0.0 - 1.0 09/20/2012 Normal [facility] HEMATOLOGY Segs 59.1 % 45.0 - 75.0 09/20/2012 Normal [facility] HEMATOLOGY Lymphocytes 26.1 % 20.0 - 40.0 09/20/2012 Normal [facility] Abdomen/Pelvis w contrast CT Abdomen/Pelvis w contrast CT EXAM: CT SCAN OF THE ABDOMEN AND PELVIS WITH CONTRAST DATE: 09/20/2012 COMPARISON STUDIES: None CLINICAL INDICATION: Abdominal distention. Status post L4-S1 spinal fusion with anterior and posterior approach on 09/08/2012. DATA: None TECHNIQUE: Contiguous 5 mm spirally acquired axial images through the abdomen and pelvis were obtained after the intravenous administration of 86 cc of Omnipaque 350 contrast material and without oral contrast material. Coronal and sagittal reconstructed images were created and are provided for interpretation as well. DISCUSSION: The patient has undergone L4-S1 fusion posteriorly with pedicular bulbs and vertically oriented rods. Anteriorly displaced interbody bone grafts are present at L4-L5 and at L5-S1 fixated by anterior washers and screws in L4 and S1. There is a mild degree of grade 1 anterior spondylolisthesis of L4 on L5 a proximally 5 mm. The patient has undergone bilateral L4 laminectomies. No gross meningoceles or pseudomeningoceles are demonstrated. There is an elongated posterior central fluid collection in the subcutaneous fat of the back spanning L1-S1 and measuring 2.3 x 1.3 x 11.1 cm with thin enhancing. Other edema and/or nonwalled off fluid is seen in the posterior soft tissues of the lower back related to the patient's prior surgery. The patient has undergone partial resection of the posterior aspect of the left iliac bone for bone grafting material. There is a hypodense fluid collection without enhancing salcedo at the bone graft donor site measuring 3.2 x 3.8 x 4.7 cm. This likely represents a liquefied hematoma, seroma, or lymphocele in this location. It measures 13 HU and density. In the left paramedian ventral abdominal wall subcutaneous fat, there is a mildly lobulated fluid collection measuring 9 HU in density and measuring 2.9 x 1.4 x 3.0 cm without enhancing salcedo and with no communication with the peritoneal cavity. This likely represents a postoperative a liquefied hematoma, seroma, lymphocele as well. This is along a prior surgical incision line. Some adjacent stranding is seen in the abdominal wall, likely postoperative in nature. No abnormalities of the liver, spleen, pancreas, adrenal glands, gallbladder, biliary tree, stomach, or large and small bowel are demonstrated. No free air is seen within the peritoneal cavity. No lymphadenopathy is demonstrated. No abnormalities of the abdominal aorta, inferior vena cava, or portal venous system are seen. There is some slight soft tissue edema anterior to the fused lumbar levels compatible with the patient's recent surgery with no distinct retroperitoneal fluid collections noted. CT evaluation of the kidneys reveals several subcentimeter hypodensities which are too small to characterize the left kidney which likely represent small cysts. No other bilateral renal or ureteral pathology are demonstrated. CT evaluation of the pelvis reveals the bladder, vagina, uterus, rectum, perirectal regions, and bilateral adnexa be normal in appearance. A trace amount of free fluid is seen in the retrouterine cul-de-sac, likely from the recent surgery or physiologic in nature. No pelvic lymphadenopathy or hernias are seen. CT evaluation of the lung bases reveals no significant pathology. IMPRESSION: 1. Status post posterior fusion of L4-S1 with anterior interbody bone grafts as well, as described above. There is grade 1 anterior spinal listhesis of L4 on L5. 2. Fluid collections at the left iliac bone donor site as well as within the left anterior abdominal wall subcutaneous fat along a prior incision line, likely from liquefying hematomas, seromas, or lymphoceles. No enhancing salcedo of these fluid collections are seen. There is mild adjacent stranding. Superimposed infection is not excluded. 3. Elongated walled off fluid collection posterior to the paraspinal muscles and spinous processes in the lumbar spine posteriorly within the subcutaneous fat, likely seroma, hematoma, or lymphocele as well. Superimposed infection is not excluded. 4. Small amount of simple free fluid in the retrouterine cul-de-sac, likely physiologic or related to the recent surgery. 5. Subcentimeter hypodensities within the left kidney which are too small to characterize but which likely represent small cysts. These could be further evaluated with ultrasound if clinically warranted. 09/20/2012 - - Read by: Brent Chavez Dictated Date/time: 09/20/12 08:46 Electronically Signed by: Brent Chavez MD 09/20/12 09:08 FINAL REPORT [facility] Vital Signs Vital Sign Value Date Comments Source Systolic (mm Hg) 120 01/18/2017 [facility] Diastolic (mm Hg) 77 01/18/2017 [facility] Temperature Oral (F) 97.7 F 01/18/2017 [facility] Heart Rate 90 01/18/2017 [facility] Rate 16 01/18/2017 [facility] Heart Rate 72 01/18/2017 [facility] Temperature Oral (F) 97.8 F 01/18/2017 [facility] Rate 16 01/18/2017 [facility] Systolic (mm Hg) 111 01/18/2017 [facility] Diastolic (mm Hg) 72 01/18/2017 [facility] Systolic (mm Hg) 142 01/18/2017 [facility] Diastolic (mm Hg) 79 01/18/2017 [facility] Respitory Rate 16 01/18/2017 [facility] Temperature Oral (F) 98.2 F 01/18/2017 [facility] Heart Rate 80 01/18/2017 [facility] BMI Calculated 28.38 01/08/2017 [facility] Weight 75 01/08/2017 [facility] Height 162.56 cm 01/08/2017 [facility] Weight 56.818 09/20/2012 [facility] Height 162.56 cm 09/20/2012 [facility] Encounters Location Location Details Encounter Type Encounter Number Reason For Visit Attending Provider ADM Date DC Date Status Source [facility] Emergency [id number] DELIA MENDEZHT 09/19/2012 09/20/[address] [facility] - [place] [facility] [id number] Mike Guerrier Jr 11/03/2013 11/04/2013 [place] [facility] [id number] Antoine Infante 06/18/2016 06/19/2016 [facility] [place] [facility] [id number] Antoine Infante 06/20/2016 06/21/2016 [facility] [place] [facility] [id number] Antoine Infante 10/19/2016 10/20/2016 [facility] [id number] Antoine Infante 12/25/2016 12/26/2016 [facility] Observation [id number] Nisha French 01/17/2017 01/19/2017 [facility] [place] [facility] [id number] Tyra Henriquez 03/05/2017 03/06/2017 [facility] [place] [facility] Outpatient [id number] BACK PAIN, 722.52 MIKE GUERRIER JR Active [facility] Procedures Procedure Code Date Perfomer Comments Source Lumbar spinal fusion [id number] [facility] [place] [facility] section [id number] [facility] [place] [facility] Operation [id number] [facility] [place] [facility] Tubal ligation [id number] [facility] [place] [facility] section [id number] [facility] Lumbar spinal fusion [id number] [facility] Operation [id number] [facility] Tubal ligation [id number] [facility] Lumbar spinal fusion [id number] [facility]
--- OUTSIDE RECORDS SUMMARY | 2018-04-03 07:35 | XMS REPORT | Clinical Summary ---
Author Author [facility] Organization [facility] Address Unknown Phone Unavailable Care Team Providers Care Permit Agent Name Role Phone Gerardo Valdes PCP Allergies No Known Allergies Medications End Date Status Medication Sig Dispensed Refills Start Date Active butalbital-acetaminophen- Take 1 tablet 0 caff (FIORICET, ESGIC) by mouth 7 50-325-40 mg per tablet every 6 (six) hours as needed. Active ALPRAZolam (XANAX) 0.5 MG Take 0.5 mg 2 tablet by mouth 7 every 6 (six) hours as needed. Active HYDROcodone-acetaminophen Take 1 tablet 0 (NORCO) 5-325 mg per by mouth 7 tablet every 6 (six) hours as needed. Active methocarbamol (ROBAXIN) Take 500 mg 0 500 MG tablet by mouth 2 7 (two) times a day. Active ondansetron (ZOFRAN) 8 MG Take 8 mg by 0 tablet mouth every 8 7 (eight) hours as needed. Chemo treatments Active prochlorperazine Take 10 mg by 0 (COMPAZINE) 10 MG tablet mouth every 8 7 (eight) hours as needed. Chemo treatment Active traMADol (ULTRAM) 50 mg Take 50 mg by 0 tablet mouth every 6 7 (six) hours as needed. Active zolpidem (AMBIEN) 10 mg Take 10 mg by 2 tablet mouth 7 nightly. 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 breast, right; Abnormal finding on lung imaging 08/07/2017 Hospital Radiology Encounter Tyra Dwyer MD Carcinoma of upper-outer quadrant of female breast, right (Primary Dx); Abnormal finding on lung imaging 06/20/2017 Transcribe Access Orders Tyra Dwyer MD 06/10/2017 Hospital Radiology Encounter Tyra Dwyer MD Malignant neoplasm of upper-outer quadrant of right female breast, unspecified estrogen receptor status 06/10/2017 Hospital Radiology Encounter Tyra Dwyer MD Malignant neoplasm of upper-outer quadrant of right female breast, unspecified estrogen receptor status 06/10/2017 Hospital Radiology Encounter Paul Randolph DO Atypical chest pain (Primary Dx) 04/18/2017 Emergency Emergency Medicine Tyra Dwyer MD Malignant neoplasm of upper-outer quadrant of right female breast, unspecified estrogen receptor status (Primary Dx) 04/02/2017 Transcribe Access Orders after 04/02/2017 Social History Date Tobacco Use Types Packs/Day Years Used Never Smoker Alcohol Use Drinks/Week oz/Week Comments Yes socially Sex Assigned at Date Recorded Not on file Industry Job Start Date Occupation Not on file Not on file Not on file Travel End Travel History Travel Start No recent travel history available. Last Filed Vital Signs Time Taken Vital Sign Reading 04/18/2017 9:15 PM FLOOR NURSE Blood Pressure 104/60 04/18/2017 9:15 PM FLOOR NURSE Pulse 81 04/18/2017 6:25 PM FLOOR NURSE Temperature 35.8 C (96.4 F) 04/18/2017 9:15 PM FLOOR NURSE Respiratory Rate 21 04/18/2017 9:15 PM FLOOR NURSE Oxygen Saturation 100% - Inhaled Oxygen - Concentration 04/18/2017 6:23 PM FLOOR NURSE Weight 74.8 kg (165 lb) 04/18/2017 6:23 PM FLOOR NURSE Height 162.6 cm (5' 4") 04/18/2017 6:23 PM FLOOR NURSE Body Mass Index 28.32 Plan of Treatment Health Maintenance Due Date Last Done Comments CERVICAL CANCER SCREENING 06/28/1988 BREAST CANCER SCREENING 06/28/2017 COLON CANCER SCREENING 06/28/2017 SHINGLES VACCINES (1 of 06/28/2017 2) INFLUENZA VACCINE 10/23/2017 Procedures Comments Procedure Name Priority Date/Time Associated Diagnosis CT CHEST W CONTRAST Routine 08/07/2017 Carcinoma of upper-outer 10:17 AM CDT quadrant of female breast, right Abnormal finding on lung imaging NM BONE SCAN WHOLE BODY Routine 06/10/2017 Malignant neoplasm of 2:27 PM CDT upper-outer quadrant of right female breast, unspecified estrogen receptor status CT CHEST W CONTRAST Routine 06/10/2017 Malignant neoplasm of ABDOMEN W CONTRAST PELVIS 12:14 PM CDT upper-outer quadrant of W CONTRAST right female breast, unspecified estrogen receptor status CT ANGIOGRAM PE CHEST STAT 04/18/2017 8:52 PM FLOOR NURSE ZZESTIMATED GFR STAT 04/18/2017 7:33 PM FLOOR NURSE HCG QUALITATIVE, SERUM STAT 04/18/2017 SCREEN 7:33 PM FLOOR NURSE B NATRIURETIC PEPTIDE STAT 04/18/2017 7:33 PM FLOOR NURSE TROPONIN STAT 04/18/2017 7:33 PM FLOOR NURSE CREATINE KINASE, TOTAL STAT 04/18/2017 (CPK) 7:33 PM FLOOR NURSE BASIC METABOLIC PANEL STAT 04/18/2017 7:33 PM FLOOR NURSE HC COMPLETE BLD COUNT STAT 04/18/2017 W/AUTO DIFF 7:33 PM FLOOR NURSE ECG 12-LEAD STAT 04/18/2017 6:26 PM FLOOR NURSE after 04/02/2017 Results * CT Chest W Contrast (08/07/2017 10:17 AM CDT) Narrative Performed At EXAMINATION:CT CHEST W CONTRAST [facility] CLINICAL HISTORY: 52 years Female C50.411 Malignant neoplasm of upper-outer quadrant of right female breast, R91.8 Other nonspecific abnormal finding of lung field, CARCINOMA R BREASTABN LUNG FINDING TECHNIQUE: Multiple axial images of the chest were obtained following intravenous administration of iodinated contrast. Sagittal and coronal computerized reformatted images were also obtained. CT imaging was performed with iterative reconstruction techniques and/or automated exposure control to reduce radiation dose. COMPARISON: June 10, 2017 FINDINGS: There is a left-sided ported central catheter in place the catheter tip projects in the superior vena cava above the right atrium. There are no abnormal mediastinal or hilar lymph nodes identified on either side. There have been bilateral mastectomies. There are bilateral tissue expanders in place. There are multiple surgical clips in the right axilla no abnormal lymph nodes are identified. The focal central lobular nodular opacities in the right apex are secured now by lung opacity which is more diffuse in the right apex and involving the anterior segment of the right upper lobe favoring the subpleural region but extending to near the medial pleural reflection. These findings suggest post radiation change. The small 4 mm nodular density previously noted in the right apex now visualized best on image 24 series 3 is unchanged no convincing nodules elsewhere are identified. IMPRESSION: 1. Interval development of patchy lung opacity in the right apex and involving the periphery of the anterior right upper lobe most suggestive of post radiation change. 2. Stable small nodule in the right apex measuring 4 to 5 mm 3. The other centrilobular nodules which were identified are obscured by the lung opacity. 4. Postop changes surgical clips in the right axillary region from previous node dissection, bilateral tissue expanders post mastectomies CT bone Windows: Demonstrate no lytic or blastic lesions involving the regional skeleton. [id number] Procedure Note Hm Interface, Radiology Results Incoming - 08/07/2017 10:45 AM CDT EXAMINATION: CT CHEST W CONTRAST CLINICAL HISTORY: 52 years Female C50.411 Malignant neoplasm of upper-outer quadrant of right female breast, R91.8 Other nonspecific abnormal finding of lung field, CARCINOMA R BREAST ABN LUNG FINDING TECHNIQUE: Multiple axial images of the chest were obtained following intravenous administration of iodinated contrast. Sagittal and coronal computerized reformatted images were also obtained. CT imaging was performed with iterative reconstruction techniques and/or automated exposure control to reduce radiation dose. COMPARISON: June 10, 2017 FINDINGS: There is a left-sided ported central catheter in place the catheter tip projects in the superior vena cava above the right atrium. There are no abnormal mediastinal or hilar lymph nodes identified on either side. There have been bilateral mastectomies. There are bilateral tissue expanders in place. There are multiple surgical clips in the right axilla no abnormal lymph nodes are identified. The focal central lobular nodular opacities in the right apex are secured now by lung opacity which is more diffuse in the right apex and involving the anterior segment of the right upper lobe favoring the subpleural region but extending to near the medial pleural reflection. These findings suggest post radiation change. The small 4 mm nodular density previously noted in the right apex now visualized best on image 24 series 3 is unchanged no convincing nodules elsewhere are identified. IMPRESSION: 1. Interval development of patchy lung opacity in the right apex and involving the periphery of the anterior right upper lobe most suggestive of post radiation change. 2. Stable small nodule in the right apex measuring 4 to 5 mm 3. The other centrilobular nodules which were identified are obscured by the lung opacity. 4. Postop changes surgical clips in the right axillary region from previous node dissection, bilateral tissue expanders post mastectomies CT bone Windows: Demonstrate no lytic or blastic lesions involving the regional skeleton. [facility]-[id number] Performing Organization Address City/State/Zipcode Phone Number [facility] [address] [place] [address] * NM Bone Scan Whole Body (06/10/2017 2:27 PM CDT) Narrative Performed At PROCEDURE:NM BONE SCAN WHOLE [facility]ODY [facility] INDICATION:Breast cancer. COMPARISON:No comparison bone scan.CT scan of the chest, abdomen, and pelvis performed on same day was reviewed. TECHNIQUE: Approximately three hours after the IV administration of 25 mCi of Tc-99m labeled MDP, routine whole body planar bone scanning was performed in the anterior and posterior projections. FINDINGS:No suspicious uptake is seen to suggest the presence of osseous metastatic disease.Postoperative changes are noted in the lumbar spine.Degenerative uptake in the shoulders, spine, and knees.Left-sided rib fractures. IMPRESSION: 1.No scintigraphic evidence of osseous metastatic disease. [id number] Procedure Note [facility], Radiology Results Incoming - 06/10/2017 2:36 PM CDT PROCEDURE: NM BONE SCAN WHOLE BODY INDICATION: Breast cancer. COMPARISON: No comparison bone scan. CT scan of the chest, abdomen, and pelvis performed on same day was reviewed. TECHNIQUE: Approximately three hours after the IV administration of 25 mCi of Tc-99m labeled MDP, routine whole body planar bone scanning was performed in the anterior and posterior projections. FINDINGS: No suspicious uptake is seen to suggest the presence of osseous metastatic disease. Postoperative changes are noted in the lumbar spine. Degenerative uptake in the shoulders, spine, and knees. Left-sided rib fractures. IMPRESSION: 1. No scintigraphic evidence of osseous metastatic disease. [id number] Performing Organization Address City/State/Zipcode Phone Number [facility] [address] [place] [address] * CT Chest W Contrast Abdomen W Contrast Pelvis W Contrast (06/10/2017 12:14 PM CDT) Narrative Performed At EXAMINATION:CT CHEST W CONTRAST ABDOMEN W CONTRAST PELVIS W CONTRAST [facility] CLINICAL HISTORY:C50.411 Malignant neoplasm of upper-outer quadrant of right female breast, C50.411 TECHNIQUE: Multiple axial images of the chest, abdomen, and pelvis were obtained following intravenous administration of iodinated contrast. Sagittal and coronal computerized reformatted images were obtained. COMPARISON:Chest CT 04/18/2017, CT abdomen and pelvis 12/21/2016 FINDINGS: Chest: 1. There are couple of 3 mm a groundglass centrilobular nodules in the right upper lobe (series 3 image 19) which were not seen previously. A 4 mm right upper lobe nodule (image 28) is stable. 2.There is no pleural or pericardial effusion. 3.There is no thoracic lymphadenopathy 4.The heart size is normal. 5.Bilateral breast tissue expanders are present. Abdomen and Pelvis: 1. The liver, gallbladder, spleen, pancreas, and adrenals are without significant finding. There is a calcified splenic granuloma. 2.The kidneys, ureters, and urinary bladder are normal. 3.Uterus and adnexa are within normal limits. 4.There is asymmetric prominence of the left gonadal veins, of uncertain clinical significance and unchanged. This can be seen in the setting of pelvic venous congestion syndrome, or can be asymptomatic. 5.There is no ascites or lymphadenopathy. Skeletal: No lytic or blastic skeletal metastases are seen. There are nonacute left 10th and 11th rib fractures. Surgical lumbosacral fusion hardware and L4 laminectomy is present. IMPRESSION: No metastatic disease. Tiny right upper lobe pulmonary nodules are probably benign postinflammatory nodule and can be followed. [id number] Procedure Note Interface, Radiology Results Incoming - 06/10/2017 1:39 PM CDT EXAMINATION: CT CHEST W CONTRAST ABDOMEN W CONTRAST PELVIS W CONTRAST CLINICAL HISTORY: C50.411 Malignant neoplasm of upper-outer quadrant of right female breast, C50.411 TECHNIQUE: Multiple axial images of the chest, abdomen, and pelvis were obtained following intravenous administration of iodinated contrast. Sagittal and coronal computerized reformatted images were obtained. COMPARISON: Chest CT 04/18/2017, CT abdomen and pelvis 12/21/2016 FINDINGS: Chest: 1. There are couple of 3 mm a groundglass centrilobular nodules in the right upper lobe (series 3 image 19) which were not seen previously. A 4 mm right upper lobe nodule (image 28) is stable. 2. There is no pleural or pericardial effusion. 3. There is no thoracic lymphadenopathy 4. The heart size is normal. 5. Bilateral breast tissue expanders are present. Abdomen and Pelvis: 1. The liver, gallbladder, spleen, pancreas, and adrenals are without significant finding. There is a calcified splenic granuloma. 2. The kidneys, ureters, and urinary bladder are normal. 3. Uterus and adnexa are within normal limits. 4. There is asymmetric prominence of the left gonadal veins, of uncertain clinical significance and unchanged. This can be seen in the setting of pelvic venous congestion syndrome, or can be asymptomatic. 5. There is no ascites or lymphadenopathy. Skeletal: No lytic or blastic skeletal metastases are seen. There are nonacute left 10th and 11th rib fractures. Surgical lumbosacral fusion hardware and L4 laminectomy is present. IMPRESSION: No metastatic disease. Tiny right upper lobe pulmonary nodules are probably benign postinflammatory nodule and can be followed. [id number] Performing Organization Address City/State/Zipcode Phone Number [facility] [address] [place] [address] * CT Angiogram Pe Chest (04/18/2017 8:52 PM FLOOR NURSE) Narrative Performed At CT [facility]IOGRAM [facility] CHEST [facility] CLINICAL INDICATION: chest pain tachycardia breast cancer r o PE TECHNIQUE:CT angiographic images of the chest were obtained during intravenous administration of iodinated contrast.Computerized, reformatted images and 3-D MIP images were obtained and archived (per CT pulmonary embolism protocol). CT scans are performed using radiation dose reduction techniques (iterative reconstruction and/or automated exposure control). Technical factors are evaluated and adjusted to ensure appropriate moderation of exposure. Automated dose management technology is applied to adjust radiation exposure while achieving a diagnostic quality image. COMPARISON:None. FINDINGS: Pulmonary arteries: Diagnostic quality of study is adequate for the evaluation of pulmonary embolism. There is no evidence of acute or chronic pulmonary embolism. No evidence of right heart strain. The main pulmonary artery is normal in luminal diameter. Aorta:No aneurysm. Lungs and large airways:Clear. Pleura:No pleural effusion, pleural thickening, or pneumothorax. Heart and pericardium:Heart size is normal. No pericardial effusion. Mediastinum and divya:No mass or hematoma. Lymph nodes:No pathological adenopathy in the divya, axilla or mediastinum. Chest wall: Right jayla dissection.. Bones: Chronic appearing fracture of the left posterior 11th rib. No suspicious bony lesions. Upper abdomen:No focal abnormality detected with limited evaluation. IMPRESSION: 1. Negative CTA examination for pulmonary embolism. 2. Lungs without focal or confluent airspace consolidation. [id number] Procedure Note Interface, Radiology Results Incoming - 04/18/2017 9:[address] ANGIOGRAM PE CHEST CLINICAL INDICATION: chest pain tachycardia breast cancer r o PE TECHNIQUE: CT angiographic images of the chest were obtained during intravenous administration of iodinated contrast. Computerized, reformatted images and 3-D MIP images were obtained and archived (per CT pulmonary embolism protocol). CT scans are performed using radiation dose reduction techniques (iterative reconstruction and/or automated exposure control). Technical factors are evaluated and adjusted to ensure appropriate moderation of exposure. Automated dose management technology is applied to adjust radiation exposure while achieving a diagnostic quality image. COMPARISON: None. FINDINGS: Pulmonary arteries: Diagnostic quality of study is adequate for the evaluation of pulmonary embolism. There is no evidence of acute or chronic pulmonary embolism. No evidence of right heart strain. The main pulmonary artery is normal in luminal diameter. Aorta: No aneurysm. Lungs and large airways: Clear. Pleura: No pleural effusion, pleural thickening, or pneumothorax. Heart and pericardium: Heart size is normal. No pericardial effusion. Mediastinum and divya: No mass or hematoma. Lymph nodes: No pathological adenopathy in the divya, axilla or mediastinum. Chest wall: Right jayla dissection.. Bones: Chronic appearing fracture of the left posterior 11th rib. No suspicious bony lesions. Upper abdomen: No focal abnormality detected with limited evaluation. IMPRESSION: 1. Negative CTA examination for pulmonary embolism. 2. Lungs without focal or confluent airspace consolidation. [id number] Performing Organization Address City/State/Zipcode Phone Number [facility] [address] [place] [address] * Estimated GFR (04/18/2017 7:33 PM FLOOR NURSE) GFR Non Af Amer 89 mL/min/1.73 m2 [facility] DEPARTMENT OF PATHOLOGY AND GENOMIC MEDICINE GFR Af Amer >90 mL/min/1.73 m2 [facility] DEPARTMENT OF Comment: PATHOLOGY AND Chronic kidney disease: <60 GENOMIC MEDICINE mL/min/1.73m2 Kidney failure: <15 mL/min/1.73m2 The estimated GFR is calculated from the IDMS-traceable Modification of Diet in Renal Disease Equation. The accuracy of the calculation is poor when the creatinine is normal. Calculated values >90 mL/min/1.73m2 are not reported. This equation has not been validated in children (<18 years), women, the elderly (>70 years), or ethnic groups other than Caucasians and Americans. Specimen Plasma specimen Performing Organization Address City/[facility] Phone Number [address] [place] [address] PATHOLOGY [facility] * Troponin (04/18/2017 7:33 PM FLOOR NURSE) Troponin <0.300 0.000 - 0.300 ng/mL [facility] DEPARTMENT OF Comment: PATHOLOGY AND 0.30 - 1.49 GENOMIC MEDICINE ng/mlMay indicate increased risk of acute coronary syndrome. >=1.5 ng/ml Consistent with acute myocardial infarction. The diagnostic value of a single normal or non-diagnostic result is questionable.Serial samples at 2-6 hour intervals are required to rule out acute myocardial injury. Specimen Plasma specimen Performing Organization Address [facility] Phone Number [address] [place] [address] PATHOLOGY AND [facility] * CBC with platelet and differential (04/18/2017 7:33 PM FLOOR NURSE) WBC 3.93 (L) 4.50 - 11.00 k/uL [facility] DEPARTMENT OF PATHOLOGY AND GENOMIC MEDICINE RBC 4.16 (L) 4.20 - 5.50 m/uL [facility] DEPARTMENT OF PATHOLOGY AND GENOMIC MEDICINE HGB 12.9 12.0 - 16.0 g/dL [facility] DEPARTMENT OF PATHOLOGY AND GENOMIC MEDICINE HCT 37.5 37.0 - 47.0 % [facility] DEPARTMENT OF PATHOLOGY AND GENOMIC MEDICINE MCV 90.1 82.0 - 100.0 fL [facility] DEPARTMENT OF PATHOLOGY AND GENOMIC MEDICINE MCH 31.0 27.0 - 34.0 pg [facility] DEPARTMENT OF PATHOLOGY AND GENOMIC MEDICINE MCHC 34.4 31.0 - 37.0 g/dL [facility] DEPARTMENT OF PATHOLOGY AND GENOMIC MEDICINE RDW - SD 39.0 37.0 - 55.0 fL [facility] DEPARTMENT OF PATHOLOGY AND GENOMIC MEDICINE MPV 9.2 8.8 - 13.2 fL [facility] DEPARTMENT OF PATHOLOGY AND GENOMIC MEDICINE Platelet count 268 150 - 400 k/uL [facility] DEPARTMENT OF PATHOLOGY AND GENOMIC MEDICINE Nucleated RBC 0.00 /100 WBC [facility] DEPARTMENT OF PATHOLOGY AND GENOMIC MEDICINE Neutrophils 56.7 39.0 - 69.0 % [facility] DEPARTMENT OF PATHOLOGY AND GENOMIC MEDICINE Lymphocytes 26.0 25.0 - 45.0 % [facility] DEPARTMENT OF PATHOLOGY AND GENOMIC MEDICINE Monocytes 14.5 (H) 0.0 - 10.0 % [facility] DEPARTMENT OF PATHOLOGY AND GENOMIC MEDICINE Eosinophils 2.0 0.0 - 5.0 % [facility] DEPARTMENT OF PATHOLOGY AND GENOMIC MEDICINE Basophils 0.5 0.0 - 1.0 % [facility] DEPARTMENT OF PATHOLOGY AND GENOMIC MEDICINE Immature granulocytes 0.3Comment: "Immature 0.0 - 1.0 % [facility] DEPARTMENT OF granulocytes" (promyelocytes, PATHOLOGY AND myelocytes, metamyelocytes) GENOMIC MEDICINE Specimen Blood Performing Organization Address [facility] Phone Number [address] [place] [address] PATHOLOGY AND [facility] MEDICINE * hCG qualitative, serum screen (04/18/2017 7:33 PM FLOOR NURSE) hCG qualitative, serum Negative [facility] DEPARTMENT PATHOLOGY AND GENOMIC MEDICINE Specimen Blood Performing Organization Address [facility]/[address] [place] [address] PATHOLOGY [facility] MEDICINE * B natriuretic peptide (04/18/2017 7:33 PM FLOOR NURSE) BNP 2 0 - 100 pg/mL [facility] DEPARTMENT PATHOLOGY AND GENOMIC MEDICINE Specimen Blood Performing Organization Address [facility] Number [address] [place] [address] PATHOLOGY [facility] * Creatine kinase, total (CPK) (04/18/2017 7:33 PM FLOOR NURSE) Creatine kinase 82 26 - 192 U/L [facility] DEPARTMENT OF PATHOLOGY AND GENOMIC MEDICINE Specimen Plasma specimen Performing Organization Address [facility] Phone Number [address] [place] [phone] PATHOLOGY AND [facility] * Basic metabolic panel (04/18/2017 7:33 PM FLOOR NURSE) Sodium 139 135 - 148 mEq/L [facility] DEPARTMENT OF PATHOLOGY AND GENOMIC MEDICINE Potassium 3.8 3.5 - 5.0 mEq/L [facility] DEPARTMENT OF PATHOLOGY AND GENOMIC MEDICINE Chloride 99 98 - 112 mEq/L [facility] DEPARTMENT OF PATHOLOGY AND GENOMIC MEDICINE CO2 25 24 - 31 mEq/L [facility] DEPARTMENT OF PATHOLOGY AND GENOMIC MEDICINE Anion gap 15 7 - 15 mEq/L [facility] DEPARTMENT OF Comment: PATHOLOGY AND Starting from June [facility] , anion gap calculation no longer incorporates potassium. Please note the change. BUN 20 6 - 20 mg/dL [facility] DEPARTMENT OF PATHOLOGY AND GENOMIC MEDICINE Creatinine 0.7 0.5 - 0.9 mg/dL [facility] DEPARTMENT OF PATHOLOGY AND GENOMIC MEDICINE Glucose 98 65 - 99 mg/dL [facility] OF PATHOLOGY AND GENOMIC MEDICINE Calcium 9.8 8.3 - 10.2 mg/dL [facility] OF PATHOLOGY AND GENOMIC [facility] Specimen Plasma specimen Performing Organization Address City/[facility] Phone Number [address] [place] [address] PATHOLOGY AND [facility] [facility] ECG 12 lead (04/18/2017 6:26 PM FLOOR NURSE) Ventricular rate 118 [facility] Atrial rate 118 [facility] PA interval 118 [facility] QRSD interval 72 [facility] QT interval 310 [facility] QTC interval 434 [facility] P axis 1 75 [facility] QRS axis 1 64 [facility] T wave axis 18 [facility] EKG impression Sinus tachycardia-Otherwise [facility] normal ECG-No previous ECGs available- Performing Organization Address City/State/Zipcode Phone Number [facility] [address] [place] [address] after 04/02/2017 Insurance Payer Benefit Subscriber ID Type Phone Address Plan / Group [facility] xxxxxxxxx HMO/PPO THCARE CHOICE/CHO ICE + Advance Directives Patient has advance care planning documents on file. For more information, freddy armas contact: Abdon Verdugo [address] [place] [address]
--- OUTSIDE RECORDS SUMMARY | 2018-04-03 07:36 | XMS REPORT | Summary of Care ---
Author Author [facility] Organization [facility] Address Unknown Phone Unavailable Encounter FELISA Khan(MAHESH) [id number] Date(s): 01/17/17 - 01/18/17 [facility] [address] [place] [address]- Discharge Disposition: Home or Self Care Attending Physician: Nisha French MD Referring Physician: Nisha French MD Vital Signs 1 2 3 Most recent to oldest [Reference Range]: 162.56 cm (01/08/17 12:23 PM) Height 97.7 DegF (01/18/17 3:54 PM) 97.8 DegF (01/18/17 12:00 PM) 98.2 DegF (01/18/17 7:59 AM) Temperature Oral [96.4-99.1 DegF] 120/77 mmHg (01/18/17 3:54 PM) 111/72 mmHg (01/18/17 12:00 PM) 142/79 mmHg *HI* (01/18/17 7:59 AM) Blood Pressure [90-140/60-90 mmHg] 16 BRMIN (01/18/17 3:54 PM) 16 BRMIN (01/18/17 12:00 PM) 16 BRMIN (01/18/17 7:59 AM) Respiratory Rate [14-20 BRMIN] 90 bpm (01/18/17 3:54 PM) 72 bpm (01/18/17 12:00 PM) 80 bpm (01/18/17 7:59 AM) Peripheral Pulse Rate [60-100 bpm] 75 kg (01/08/17 12:23 PM) Weight 28.38 m2 (01/08/17 12:23 PM) Body Mass Index Problem List Condition Effective Dates Status Health Status Informant Anxiety(Confirmed) Active FH: Active mastectomy(Confirmed ) Headache(Confirmed) Active Breast Active cancer(Confirmed) Allergies, Adverse Reactions, Alerts Substance Reaction Severity Status NKDA Active Medications acetaminophen 650 mg, 2 tab, Route: PO, Drug form: TAB, Q4H, Dosing Weight 75, kg, PRN For Tem p > 100.4 F, Start date: 01/17/17 13:26:00 CDT, Duration: 30 day, Stop date: 02/16/17 13:25:00 SOCIAL SERVICE DIRECTOR Notes: Do not exceed 4 gm/day. (Same as: Tylenol) Start Date: 01/17/17 Stop Date: 01/19/17 Status: Discontinued acetaminophen-hydrocodone 325 mg-5 mg oral tablet 2 tab, Route: PO, Drug Form: TAB, Dosing Weight 75, kg, Q4H, PRN Pain Score 4-6, Start date: 01/17/17 13:54:00 CDT, Duration: 30 day, Stop date: 02/16/17 13:53: 00 SOCIAL SERVICE DIRECTOR Notes: (Same as: [place] 325/5) Do not exceed 4gm/day of acetaminophen. Start Date: 01/17/17 Stop Date: 01/19/17 Status: Discontinued Ambien 10 mg oral tablet 10 mg=1 tab, PO, Bedtime, 0 Refill(s) Start Date: 01/08/17 Stop Date: 01/18/17 Status: Discontinued Ancef 2 gm, 100 mL, Route: IVPB, Drug form: INJ, Q8H, Dosing Weight 75, kg, Start date : 01/17/17 20:00:00 CDT, Duration: 1 day, Stop date: 01/18/17 12:00:00 CDT, ABX Indication: Surgical Prophylaxis Notes: Same as: Ancef Start Date: 01/17/17 Stop Date: 01/18/17 Status: Completed ANES fentaNYL 50 microgram, Route: IVP, Q5Min, Dosing Weight 75, kg, PRN Pain Score 7-10, Prio rity: Routine, Start date: 01/17/17 14:30:00 CDT, Duration: 2 doses or times, St op date: Limited # of times Start Date: 01/17/17 Stop Date: 01/17/17 Status: Discontinued ANES fentaNYL 25 microgram, Route: IVP, Q5Min, Dosing Weight 75, kg, PRN Pain Score 4-6, Prior ity: Routine, Start date: 01/17/17 14:30:00 CDT, Duration: 4 doses or times, Sto p date: Limited # of times Start Date: 01/17/17 Stop Date: 01/17/17 Status: Discontinued ANES flumazenil 0.2 mg, Route: IVP, PRN, Dosing Weight 75, kg, PRN Benzodiazepine Reversal, Init ial dose, Start date: 01/17/17 14:30:00 CDT, Duration: 30 day, Stop date: 13:29:00 SOCIAL SERVICE DIRECTOR Start Date: 01/17/17 Stop Date: 01/17/17 Status: Discontinued ANES hydrALAZINE 10 mg, Route: IVP, Q20Min, Dosing Weight 75, kg, PRN Elevated BP, Start date: 14:30:00 CDT, Duration: 2 doses or times, Stop date: Limited # of times Start Date: 01/17/17 Stop Date: 01/17/17 Status: Discontinued ANES HYDROmorphone 0.5 mg, Route: IVP, Q5Min, Dosing Weight 75, kg, PRN Pain Score 7-10, Start date : 01/17/17 14:30:00 CDT, Duration: 4 doses or times, Stop date: Limited # of bryan es Start Date: 01/17/17 Stop Date: 01/17/17 Status: Discontinued ANES labetalol 10 mg, Route: IVP, Q5Min, Dosing Weight 75, kg, PRN Elevated BP, Start date: 14:30:00 CDT, Duration: 5 doses or times, Stop date: Limited # of times Start Date: 01/17/17 Stop Date: 01/17/17 Status: Discontinued ANES meperidine 12.5 mg, Route: IVP, Q30Min, Dosing Weight 75, kg, PRN Other -See Comment, For s sandra, Start date: 01/17/17 14:30:00 CDT, Duration: 2 doses or times, Stop da te: Limited # of times Start Date: 01/17/17 Stop Date: 01/17/17 Status: Discontinued ANES morphine Sulfate 2 mg, Route: IVP, Q5Min, Dosing Weight 75, kg, PRN Pain Score 4-6, Start date: 1 14:30:00 CDT, Duration: 5 doses or times, Stop date: Limited # of times Start Date: 01/17/17 Stop Date: 01/17/17 Status: Discontinued ANES naloxone 0.4 mg, Route: IVP, Q2MIN, Dosing Weight 75, kg, PRN Narcotic Reversal, Start da te: 01/17/17 14:30:00 CDT, Duration: 8 doses or times, Stop date: Limited # of t imes Start Date: 01/17/17 Stop Date: 01/17/17 Status: Discontinued ANES ondansetron 4 mg, Route: IVP, ONCE, Dosing Weight 75, kg, PRN Nausea & Vomiting, Start date: 01/17/17 14:30:00 CDT Start Date: 01/17/17 Stop Date: 01/17/17 Status: Discontinued ANES oxyCODONE 5 mg, Route: PO, Drug form: TAB, Q4H, Dosing Weight 75, kg, PRN Pain Score 4-6, Start date: 01/17/17 14:30:00 CDT, Duration: 30 day, Stop date: 02/16/17 14:29:0 0 SOCIAL SERVICE DIRECTOR Start Date: 01/17/17 Stop Date: 01/17/17 Status: Discontinued ANES promethazine 6.25 mg, Route: IVPB, ONCE, Dosing Weight 75, kg, PRN Nausea & Vomiting, Start date: 01/17/17 14:30:00 CDT Start Date: 01/17/17 Stop Date: 01/17/17 Status: Discontinued ceFAZolin (ANES) Route: IV, Drug form: INJ, ONCE, Stop date: 01/17/17 11:51:00 CDT Start Date: 01/17/17 Stop Date: 01/17/17 Status: Completed D5W 1/2NS + KCL 20mEq/L 1000ml (Premix) 1,000 mL 1,000 mL, Rate: 75 ml/hr, Infuse over: 13.3 hr, Route: IV, Dosing Weight 75 kg, Total Volume: 1,000, Start date: 01/17/17 13:18:00 CDT, Stop date: 01/18/17 13:1 7:00 CDT Notes: PREMIX IV - Do Not AlterWASTE: F/P - Sink; E - Municipal Trash Bin Start Date: 01/17/17 Stop Date: 01/18/17 Status: Completed dexamethasone (ANES) Route: IV, Drug form: INJ, ONCE, Stop date: 01/17/17 14:16:00 CDT Start Date: 01/17/17 Stop Date: 01/17/17 Status: Completed diphenhydrAMINE 25 mg, 1 tab, Route: PO, Drug form: TAB, Q6H, Dosing Weight 75, kg, PRN Itching, Start date: 01/17/17 13:26:00 CDT, Duration: 30 day, Stop date: 02/16/17 13:25: 00 SOCIAL SERVICE DIRECTOR Start Date: 01/17/17 Stop Date: 01/19/17 Status: Discontinued famotidine (ANES) Route: IV, Drug form: INJ, ONCE, Stop date: 01/17/17 12:26:00 CDT Start Date: 01/17/17 Stop Date: 01/17/17 Status: Completed fentaNYL (ANES) Route: IV, Drug form: INJ, ONCE, Stop date: 01/17/17 11:51:00 CDT Start Date: 01/17/17 Stop Date: 01/17/17 Status: Completed Fioricet 300 mg-50 mg-40 mg oral capsule 1 cap, PO, Q4H, 0 Refill(s) Start Date: 01/08/17 Stop Date: 01/18/17 Status: Discontinued glycopyrrolate (ANES) Route: IV, Drug form: INJ, ONCE, Stop date: 01/17/17 13:06:00 CDT Start Date: 01/17/17 Stop Date: 01/17/17 Status: Completed hydromorphone (ANES) Route: IV, Drug form: INJ, ONCE, Stop date: 01/17/17 12:06:00 CDT Start Date: 01/17/17 Stop Date: 01/17/17 Status: Completed isosulfan blue 10 mg, 1 mL, Route: SUB-Q, Drug form: INJ, ONCALL, Dosing Weight 75, kg, PRN Oth er -See Comment, Priority: STAT, Start date: 01/17/17 8:11:00 CDT, Duration: 30 day, Stop date: 02/16/17 7:10:00 SOCIAL SERVICE DIRECTOR Notes: (Same as:Lymphazurin) MEDICATION WASTE Product Size: 50 mgProduc t Wasted: ___ mg Start Date: 01/17/17 Stop Date: 01/17/17 Status: Discontinued Lactated Ringers 1,000 mL 1,000 mL, Rate: 25 ml/hr, Infuse over: 40 hr, Route: IV, Dosing Weight 75 kg, To ramos Volume: 1,000, Start date: 01/17/17 7:59:00 CDT, Duration: 1 day, Stop date: 01/18/17 7:58:00 CDT Start Date: 01/17/17 Stop Date: 01/17/17 Status: Discontinued lidocaine (ANES) Route: IV, Drug form: INJ, ONCE, Stop date: 01/17/17 11:51:00 CDT Start Date: 01/17/17 Stop Date: 01/17/17 Status: Completed LR 1000 mL INJ (ANES) Route: IV, Total Volume: 1,000, Start date: 01/17/17 11:01:00 CDT, Stop date: 12:01:00 CDT Start Date: 01/17/17 Stop Date: 01/17/17 Status: Completed midazolam (ANES) Route: IV, Drug form: SOLN, ONCE, Stop date: 01/17/17 11:51:00 CDT Start Date: 01/17/17 Stop Date: 01/17/17 Status: Completed morphine Sulfate 2 mg, 1 mL, Route: IVP, Drug form: SOLN, Q2H, Dosing Weight 75, kg, PRN Pain Sco re 4-6, Start date: 01/17/17 13:51:00 CDT, Duration: 30 day, Stop date: 02/16/17 13:50:00 SOCIAL SERVICE DIRECTOR Start Date: 01/17/17 Stop Date: 01/19/17 Status: Discontinued morphine Sulfate 4 mg, 1 mL, Route: IVP, Drug form: SOLN, Q2H, PRN Pain Score 7-10, Start date: 1 15:33:00 CDT, Duration: 30 day, Stop date: 02/16/17 15:32:00 SOCIAL SERVICE DIRECTOR Notes: (Same as:MORPhine Sulfate) Start Date: 01/17/17 Stop Date: 01/19/17 Status: Discontinued neostigmine (ANES) Route: IV, Drug form: INJ, ONCE, Stop date: 01/17/17 14:20:00 CDT Start Date: 01/17/17 Stop Date: 01/17/17 Status: Completed Ofirmev 1,000 mg, Route: IV, ONCE, Dosing Weight 75, kg, Start date: 01/17/17 9:05:00 CD T, Stop date: 01/17/17 9:05:00 CDT Start Date: 01/17/17 Stop Date: 01/17/17 Status: Completed ondansetron 4 mg, 2 mL, Route: IVP, Drug form: INJ, Q8H, Dosing Weight 75, kg, PRN Nausea & Vomiting, Start date: 01/17/17 13:26:00 CDT, Duration: 30 day, Stop date: 02/16 13:25:00 SOCIAL SERVICE DIRECTOR Notes: (Same as: Dianna) MEDICATION WASTE Product Size: 4 mgProduct Was lexus: ___ mg Start Date: 01/17/17 Stop Date: 01/19/17 Status: Discontinued ondansetron (ANES) Route: IV, Drug form: INJ, ONCE, Stop date: 01/17/17 14:16:00 CDT Start Date: 01/17/17 Stop Date: 01/17/17 Status: Completed phenylephrine (ANES) Route: IV, Drug form: INJ, ONCE, Stop date: 01/17/17 11:56:00 CDT Start Date: 01/17/17 Stop Date: 01/17/17 Status: Completed Prevacid 30 mg, PO, Daily, # 15 cap, 0 Refill(s) Start Date: 01/08/17 Stop Date: 01/18/17 Status: Discontinued propofol (ANES) Route: IV, Drug form: INJ, ONCE, Stop date: 01/17/17 11:51:00 CDT Start Date: 01/17/17 Stop Date: 01/17/17 Status: Completed Robaxin 500 mg oral tablet 1,000 mg=2 tab, PO, QID, 0 Refill(s) Start Date: 01/08/17 Stop Date: 01/18/17 Status: Discontinued rocuronium (ANES) Route: IV, Drug form: INJ, ONCE, Stop date: 01/17/17 11:51:00 CDT Start Date: 01/17/17 Stop Date: 01/17/17 Status: Completed Senokot S 1 tab, Route: PO, Drug Form: TAB, Dosing Weight 75, kg, BID, Start date: 7 17:00:00 CDT, Duration: 30 day, Stop date: 02/16/17 9:00:00 SOCIAL SERVICE DIRECTOR Notes: (Same as Senokot-S) Equiv. to Dacia-Colace. Start Date: 01/17/17 Stop Date: 01/19/17 Status: Discontinued tramadol 50 mg oral tablet 50 mg=1 tab, PO, Q4H, 0 Refill(s) Start Date: 01/08/17 Stop Date: 01/18/17 Status: Discontinued Valium 5 mg, 1 tab, Route: PO, Drug form: TAB, Q8H, Dosing Weight 75, kg, Start date: 16:00:00 CDT, Duration: 30 day, Stop date: 02/16/17 8:00:00 SOCIAL SERVICE DIRECTOR Notes: (Same as: Valium) Start Date: 01/17/17 Stop Date: 01/19/17 Status: Discontinued Xanax 0.25 mg oral tablet 0.25 mg=1 tab, PO, TID, 0 Refill(s) Start Date: 01/08/17 Stop Date: 01/18/17 Status: Discontinued Results URINE CHEM Most recent to 1 oldest [Reference Range]: U Preg [Negative] Negative (01/17/17 8:01 AM) Immunizations No data available for this section Procedures Procedure Date Related Diagnosis Body Site section Lumbar spinal fusion Operation Tubal ligation Social History Social History Type Response Substance Abuse Use: None. Alcohol Current, Frequency: 1-2 times per year. Smoking Status Never smoker; Lives with someone who smokes; Cigarette Smoking Last 365 Days No; Reg Smoking Cessation Counseling No Assessment and Plan No data available for this section
--- OUTSIDE RECORDS SUMMARY | 2018-04-03 07:36 | XMS REPORT | Summary of Care ---
Author Author [facility] - [facility] Address Unknown Phone Unavailable Encounter HQ Encntr_pattylashanda([facility]) [id number] Date(s): 12/25/16 - 12/25/16 [facility] [address] [phone] Discharge Disposition: Home or Self Care Attending Physician: Antoine Infante Vital Signs No data available for this section Problem List No data available for this section Allergies, Adverse Reactions, Alerts Substance Reaction Severity Status NKDA Active Medications No data available for this section Results No data available for this section Immunizations No data available for this section Procedures Procedure Date Related Diagnosis Body Site Lumbar spinal fusion Social History No data available for this section Assessment and Plan No data available for this section
--- OUTSIDE RECORDS SUMMARY | 2018-04-03 07:36 | XMS REPORT | Summary of Care ---
Author Author [facility] Out[facility] - [facility] Address Unknown Phone Unavailable Encounter HQ Encntr_pattylashanda(FIN) [id number] Date(s): 06/18/16 - 06/18/16 [facility] [address] [phone] Discharge Disposition: Home or Self Care Attending [...]
--- OUTSIDE RECORDS SUMMARY | 2018-04-03 07:36 | XMS REPORT | Summary of Care ---
Author Author [facility] Outpatient [facility] - [facility] Address Unknown Phone Unavailable Encounter HQ Rafaelantr_pattylashanda(FIN) [id number] Date(s): 10/19/16 - 10/19/16 [facility] [address] [phone] Discharge Disposition: Home or Self Care Attending [...]
--- OUTSIDE RECORDS SUMMARY | 2018-04-03 07:36 | XMS REPORT | Summary of Care ---
Author Author [facility] Outpatient [facility] [place] [facility] Outpatient Imaging - [facility] Address Unknown Phone Unavailable Encounter HQ Encntr_pattylashanda(FIN) [id number] Date(s): 06/20/16 - 06/20/16 [facility] Outpatient [facility] [place] [facility] [address] [phone] Discharge Disposition: Home or Self Care Attending [...]
--- OUTSIDE RECORDS SUMMARY | 2018-04-03 07:36 | XMS REPORT | CCD ---
Author Author Auto Generated Organization [facility] Address Unknown Phone Unavailable Care Team Providers Care Lehr Loader Name Role Phone Matthew Colon CP Allergies, Adverse Reactions, Alerts Substance Reaction Status NKDA Active Medications Medication Instructions Start Date End Date Status Omnipaque 350mg/ml 86 mL, Route: IVP, Drug Form: SOLN, 09/19/2012 09/20/2012 Completed Dosing Weight 56.818, kg, ONCALL, STAT, Start date: 09/19/12 23:25:00, Duration: 1 doses or times, Dose=2.2ml/kg, Max moag=925ni -- "To be infused by Radiology Staff ONLY" Dose=2.2ml/kg, Max ggyw=562db -- "To be infused by Radiology Staff ONLY" morphine Sulfate 4 mg, Route: IVP, Drug form: INJ, 09/19/2012 09/19/2012 Completed ONCE, Dosing Weight 56.818, kg, Priority: STAT, Start date: 09/19/12 22:14:00, Stop date: 09/19/12 22:14:00 morphine Sulfate 6 mg, 1.5 mL, Route: IVP, Drug 09/20/2012 09/20/2012 Completed form: INJ, ONCE, Dosing Weight 56.818, kg, Priority: STAT, Start date: 09/20/12 3:12:00, Stop date: 09/20/12 3:12:00 Vital Signs Most recent to oldest [Reference Range]: 1 Height 162.56 cm (09/19/2012 19:56:00) Weight 56.818 kg (09/19/2012 19:56:00) Results URINALYSIS Most recent to oldest [Reference Range]: 1 UA Turbidity [Clear] Clear (09/19/2012 21:59:05) UA Color [Yellow] Yellow *NA* (09/19/2012 21:59:05) UA pH [5.0-8.0] 6.0 (09/19/2012 21:59:05) UA Spec Grav [<=1.030] 1.010 (09/19/2012 21:59:05) UA Glucose [Negative] Negative (09/19/2012 21:59:05) UA Blood [Negative] Trace *ABN* (09/19/2012 21:59:05) UA Ketones [Negative] Negative *NA* (09/19/2012 21:59:05) UA Protein [Negative] Negative (09/19/2012 21:59:05) UA Urobilinogen [0.1-1.0 EU/dL] 0.2 EU/dL (09/19/2012 21:59:05) UA Bili [Negative] Negative *NA* (09/19/2012 21:59:05) UA Leuk Est [Negative] Negative (09/19/2012 21:59:05) UA Nitrite [Negative] Negative (09/19/2012 21:59:05) UA WBC [None Seen /HPF] 0-2 /HPF (09/19/2012 21:59:05) UA RBC [0-2 /HPF] 3-5 /HPF *ABN* (09/19/2012 21:59:05) UA Bacteria [None Seen /HPF] Occasional /HPF (09/19/2012 21:59:05) UA Sq Epi [Few /LPF] Occasional /LPF (09/19/2012 21:59:05) Micro? Performed (09/19/2012 21:59:05) CHEMISTRY Most recent to oldest [Reference Range]: 1 Sodium Lvl [135-145 mEq/L] 138 mEq/L (09/19/2012 21:59:00) Potassium Lvl [3.5-5.1 mEq/L] 4.3 mEq/L (09/19/2012 21:59:00) Chloride Lvl [95-109 mEq/L] 99 mEq/L (09/19/2012 21:59:00) CO2 [24-32 mEq/L] 28 mEq/L (09/19/2012 21:59:00) AGAP [10.0-20.0 mEq/L] 15.3 mEq/L (09/19/2012 21:59:00) Creatinine Lvl [0.5-1.4 mg/dL] 0.7 mg/dL (09/19/2012 21:59:00) eGFR 105 mL/min/1.73m2 1 *NA* (09/19/2012:59:00) BUN [7-22 mg/dL] 14 mg/dL (09/19/2012 21:59:00) Glucose Lvl [70-99 mg/dL] 86 mg/dL 2 (09/19/2012:59:00) Calcium Lvl [8.5-10.5 mg/dL] 9.0 mg/dL (09/19/2012 21:59:00) Lactic Acid Lvl [0.5-2.2 mMol/L] 0.8 mMol/L (09/19/2012:59:00) U Preg [Negative] Negative (09/19/2012:59:18) 1Result Comment: The eGFR is calculated using [...] from the National Kidney Disease Education Program ( NKDEP) which additionally recommends that when the eGFR is used in patients with extremes of body mass index for purposes of drug dosing, the eGFR should be mul tiplied by the estimated BMI. 2Interpretive Data: Adult reference range values reflect the clinical guidelines of the [place] [employer]. HEMATOLOGY Most recent to oldest [Reference Range]: 1 WBC [3.7-10.4 K/CMM] 7.5 K/CMM (09/19/2012 21:59:00) RBC [4.20-5.40 M/CMM] 3.67 M/CMM *LOW* (09/19/2012:59:00) Hgb [12.0-16.0 g/dL] 11.5 g/dL *LOW* (09/19/2012:59:00) Hct [36.0-48.0 %] 31.9 % *LOW* (09/19/2012 21:59:00) MCV [81.0-99.0 fL] 87.0 fL (09/19/2012 21:59:00) MCH [27.0-31.0 pg] 31.4 pg *HI* (09/19/2012 21:59:00) MCHC [32.0-36.0 g/dL] 36.0 g/dL (09/19/2012 21:59:00) RDW [11.5-14.5 %] 12.7 % (09/19/2012 21:59:00) Platelet [133-450 K/CMM] 395 K/CMM (09/19/2012 21:59:00) MPV [7.4-10.4 fL] 7.2 fL *LOW* (09/19/2012 21:59:00) Segs [45.0-75.0 %] 59.1 % (09/19/2012 21:59:00) Lymphocytes [20.0-40.0 %] 26.1 % (09/19/2012 21:59:00) Monocytes [2.0-12.0 %] 12.5 % *HI* (09/19/2012 21:59:00) Eosinophils [0.0-4.0 %] 1.8 % (09/19/2012 21:59:00) Basophils [0.0-1.0 %] 0.5 % (09/19/2012 21:59:00) Segs-Bands # [1.5-8.1 K/CMM] 4.5 K/CMM (09/19/2012 21:59:00) Lymphocytes # [1.0-5.5 K/CMM] 2.0 K/CMM (09/19/2012 21:59:00) Monocytes # [0.0-0.8 K/CMM] 0.9 K/CMM *HI* (09/19/2012 21:59:00) Eosinophils # [0.0-0.5 K/CMM] 0.1 K/CMM (09/19/2012 21:59:00) Basophils # [0.0-0.2 K/CMM] 0.0 K/CMM (09/19/2012 21:59:00) Procedures Procedures Date Related Diagnosis Lumbar spinal fusion
--- OUTSIDE RECORDS SUMMARY | 2018-04-03 07:36 | XMS REPORT | Summary of Care ---
Author Author [facility] Address Unknown Phone Unavailable Encounter FELISA Khan(MAHESH) [id number] Date(s): 03/05/17 - 03/05/17 [facility] [address] [phone] Discharge Disposition: Home or Self Care Attending Physician: Tyra Dwyer MD Vital Signs No data available for this section Problem List Condition Effective Dates Status Health [...]
--- OUTSIDE RECORDS SUMMARY | 2018-04-03 07:36 | XMS REPORT | Summary of Care ---
Author Organization Unknown Address Unknown Phone Unavailable Encounter HQ Cristinar_esau([facility]) [id number] Date(s): 11/03/13 - 11/03/13 [facility] Outpatient Imaging - [address] Discharge Disposition: Home Physician Attending: Mike Carter MD Reason for Visit 724.2 - LUMB[place]O Problem List No data available for this section Allergies, Adverse Reactions, Alerts Substance Reaction Severity Status NKDA Active Medications No data available for this section Medications Administered During Your Visit No data available for this section Immunizations No data available for this section
[~2018-04-03 09:08] MED LIST changes: -ACETAMINOPHEN 1000 MG/100 ML 100 ML IV ONE; -ACETAMINOPHEN 1000 MG/100 ML IV ONE; -BACITRACIN 50,000 UNIT VIAL ONE; -BUPIVACAINE 0.25% 30ML SDV INJ ONE; -CEFAZOLIN SOD 1 GM VIAL ONE; -DEXAMETHASONE SOD PHOS INJ 4 MG/ML VIAL ONE; -DIPHENHYDRAMINE HCL INJ 50 MG/ML VIAL ONE; -EPINEPHRINE HCL INJ 1 MG/ML AMP ONE; -FENTANYL CITRATE/PF 100MCG/2 ML INJ ONE; -HYDROMORPHONE 1MG/1ML INJ ONE; -LIDOCAINE HCL 1% 30ML-PF VIAL ONE; -LIDOCAINE HCL 2% LOCAL INJ 5 ML SDV VIAL INJ ONE; -MEPERIDINE HCL INJ 50 MG/ML INJ ONE; -MIDAZOLAM HCL 2 MG/2 ML VIAL ONE; -ONDANSETRON HCL INJ 2 MG/ML VIAL ONE; -PROPOFOL IV EMULSION 10 MG/ML 20 ML VIAL ONE; -SEVOFLURANE INHAL SOLN 250 ML PEN BTL ONE
--- OUTSIDE RECORDS SUMMARY | 2018-04-03 09:12 | XMS REPORT | Clinical Summary ---
Author Author [employer] Organization [employer] Address Unknown Phone Unavailable Care Team Providers Care Hiv/Aids Care Nurse Name Role Phone Gerardo Valdes PCP Allergies [...] Taken Vital Sign Reading 04/18/2017 9:[address]CHANIC Blood Pressure 104/60 04/18/2017 9:[address] MECHANIC Pulse 81 04/18/2017 6:[address] MECHANIC Temperature 35.8 C (96.4 F) 04/18/2017 9:[address] MECHANIC Respiratory Rate 21 04/18/2017 9:[address] MECHANIC Oxygen Saturation 100% - Inhaled Oxygen - Concentration 04/18/2017 6:[address] MECHANIC Weight 74.8 kg (165 lb) 04/18/2017 6:[address] MECHANIC Height 162.6 cm (5' 4") 04/18/2017 6:[address] MECHANIC Body Mass Index 28.32 Plan of Treatment [...] ANGIOGRAM PE CHEST STAT 04/18/2017 8:[address]CHANIC ZZESTIMATED GFR STAT 04/18/2017 7:[address] MECHANIC HCG QUALITATIVE, SERUM STAT 04/18/2017 SCREEN 7:[address]CHANIC B NATRIURETIC PEPTIDE STAT 04/18/2017 7:[address]CHANIC TROPONIN STAT 04/18/2017 7:[address]CHANIC CREATINE KINASE, TOTAL STAT 04/18/2017 (CPK) 7:[address] MECHANIC BASIC METABOLIC PANEL STAT 04/18/2017 7:[address] MECHANIC HC COMPLETE BLD COUNT STAT 04/18/2017 W/AUTO DIFF 7:[address] MECHANIC ECG 12-LEAD STAT 04/18/2017 6:[address] MECHANIC after 04/02/2017 Results * CT Chest W [...] or blastic lesions involving the regional skeleton. [id number] Procedure Note Hm Interface, Radiology Results Incoming [...] or blastic lesions involving the regional skeleton. [facility]-[id number] Performing Organization Address City/State/Zipcode Phone Number [facility] [address] [place] [address] * NM Bone Scan Whole Body (06/10/2017 2:27 PM CDT) Narrative Performed At PROCEDURE:NM BONE SCAN WHOLE BODY [facility] INDICATION:Breast cancer. COMPARISON:No comparison bone scan.CT scan [...] 1.No scintigraphic evidence of osseous metastatic disease. [facility]-[id number] Procedure Note [facility], Radiology Results Incoming - 06/10/2017 2:36 PM [...] No scintigraphic evidence of osseous metastatic disease. [facility]-[id number] Performing Organization Address City/State/Zipcode Phone Number [facility] [address] [place] [address] * CT Chest W Contrast Abdomen W [...] benign postinflammatory nodule and can be followed. [id number] Procedure Note Interface, Radiology Results Incoming - [...] benign postinflammatory nodule and can be followed. [id number] Performing Organization Address City/State/Zipcode Phone Number [facility] [address] [place] [address] * CT Angiogram Pe Chest (04/18/2017 8:[address] MECHANIC) Narrative Performed At CT ANGIOGRAM PE CHEST [facility] CLINICAL INDICATION: chest pain tachycardia breast cancer [...] Lungs without focal or confluent airspace consolidation. [facility]-[id number] Procedure Note Interface, Radiology Results Incoming - 04/18/2017 9:[address] ANGIOGRAM PE CHEST CLINICAL INDICATION: chest [...] Lungs without focal or confluent airspace consolidation. [facility]-[id number] Performing Organization Address City/State/Zipcode Phone Number KOLE [address] [place] [address] * Estimated GFR (04/18/2017 7:[address] MECHANIC) GFR Non Af Amer 89 mL/min/1.73 m2 [...] Americans. Specimen Plasma specimen Performing Organization Address City/[facility] Phone Number [address] [place] [address] PATHOLOGY [facility] * Troponin (04/18/2017 7:[address]CHANIC) Troponin <0.300 0.000 - 0.300 ng/mL [facility] [...] injury. Specimen Plasma specimen Performing Organization Address [facility] Phone Number [address] [place] [address] PATHOLOGY AND [employer] [facility] * CBC with platelet and differential (04/18/2017 7:[address] MECHANIC) WBC 3.93 (L) 4.50 - 11.00 k/uL [...] GENOMIC MEDICINE Specimen Blood Performing Organization Address [facility] Phone Number [address] [place] [address] PATHOLOGY AND [facility] MEDICINE * hCG qualitative, serum screen (04/18/2017 7:[address]CHANIC) hCG qualitative, serum Negative [facility] DEPARTMENT PATHOLOGY AND GENOMIC MEDICINE Specimen Blood Performing Organization Address [facility]/[address] [place] [address] PATHOLOGY [facility] * B natriuretic peptide (04/18/2017 7:[address]CHANIC) BNP 2 0 - 100 pg/mL [facility] DEPARTMENT PATHOLOGY AND GENOMIC MEDICINE Specimen Blood Performing Organization Address [facility] Number [address] [place] [address] PATHOLOGY [facility] * Creatine kinase, total (CPK) (04/18/2017 7:[address]CHANIC) Creatine kinase 82 26 - 192 U/L [facility] DEPARTMENT OF PATHOLOGY AND GENOMIC MEDICINE Specimen Plasma specimen Performing Organization Address [facility] Phone Number [address] [place] [phone] PATHOLOGY AND [facility] * Basic metabolic panel (04/18/2017 7:[address]CHANIC) Sodium 139 135 - 148 mEq/L [facility] [...] OF Comment: PATHOLOGY AND Starting from June [facility] , anion gap calculation no longer incorporates potassium. Please note the change. BUN 20 6 - 20 mg/dL [facility] DEPARTMENT OF PATHOLOGY AND GENOMIC MEDICINE Creatinine 0.7 0.5 - 0.9 mg/dL [facility] DEPARTMENT OF PATHOLOGY AND GENOMIC MEDICINE Glucose 98 65 - 99 mg/dL [facility] OF PATHOLOGY AND GENOMIC MEDICINE Calcium 9.8 8.3 - 10.2 mg/dL [facility] OF PATHOLOGY AND GENOMIC [facility] Specimen Plasma specimen Performing Organization Address City/[facility] Phone Number [address] [place] [address] PATHOLOGY AND [facility] * ECG 12 lead (04/18/2017 6:[address]CHANIC) Ventricular rate 118 [facility] Atrial rate 118 [facility] PA interval 118 [facility] QRSD interval 72 [facility] QT interval 310 [facility] QTC interval 434 [facility] P axis 1 75 [facility] QRS axis 1 64 [facility] T wave axis 18 [facility] EKG impression Sinus tachycardia-Otherwise [facility] MUSE normal ECG-No previous ECGs available- Performing Organization Address City/State/Zipcode Phone Number [facility] MUSE [address] [place] [address] after 04/02/2017 Insurance Payer Benefit Subscriber ID Type Phone Address Plan / Group [facility] xxxxxxxxx HMO/PPO THCARE CHOICE/CHO ICE + Advance Directives Patient has advance care planning documents on file. For more information, freddy armas contact: Abdon Verdugo [address] [place] [address]
[2018-04-03] MEDS ORDERED: CEFAZOLIN SOD 1 GM/D5W 50ML 50 ML IV ONE (09:26)
[2018-04-03] MEDS ORDERED: GABAPENTIN300 MG PO (09:32)
[2018-04-03] MEDS ORDERED: BACITRACIN 50,000 UNIT VIAL ONE (09:32)
[2018-04-03 09:39] LABS: BASOPHILS % 0.3 % (0.0-1.0); EOSINOPHILS # (AUTO) 0.1 (0.0-0.4); EOSINOPHILS % 1.2 % (0.0-6.0); HEMATOCRIT 40.4 % (34.2-44.1); HEMOGLOBIN 13.6 g/dL (12.0-16.0); LYMPHOCYTES # (AUTO) 1.9 (1.0-3.2); LYMPHOCYTES % 27.8 % (18.0-39.1); MEAN CORPUSCULAR HEMOGLOBIN 31.5 pg (28-32); MEAN CORPUSCULAR HGB CONC 33.7 g/dL (31-35); MEAN CORPUSCULAR VOLUME 93.5 fL (81-99); MONOCYTES # (AUTO) 0.6 (0.2-0.8); MONOCYTES % 8.1 % (4.4-11.3); NEUTROPHILS # (AUTO) 4.3 (2.1-6.9); NEUTROPHILS % 62.5 % (38.7-80.0); PLATELET COUNT 316 x10e3/uL (140-360); RED BLOOD COUNT 4.32 x10e6/uL (3.6-5.1); RED CELL DISTRIBUTION WIDTH 11.7 % (11.7-14.4)
[2018-04-03 09:55] LABS: INR 0.92; PROTHROMBIN TIME 13.2 seconds (11.9-14.5)
[2018-04-03 09:56] LABS: PARTIAL THROMBOPLASTIN TIME 31.2 seconds (23.8-35.5)
[2018-04-03 09:58] LABS: ANION GAP 15.5 mmol/L (8-16); BLOOD UREA NITROGEN 13 mg/dL (7-26); BUN/CREATININE RATIO 15 (6-25); CALCIUM 9.6 mg/dL (8.4-10.2); CARBON DIOXIDE 24 mmol/L (22-29); CHLORIDE 100 mmol/L (98-107); CREATININE, SERUM 0.85 mg/dL (0.57-1.11); EST GLOMERULAR FILTRATION RATE > 60 ML/MIN (60-); GLUCOSE 94 mg/dL (74-118); POTASSIUM 3.5 mmol/L (3.5-5.1); SODIUM 136 mmol/L (136-145)
[2018-04-03] MEDS ORDERED: HYDROMORPHONE 2MG/ML 2 MG/ML ML ONE (14:43)
[2018-04-03] MEDS ORDERED: FENTANYL CITRATE/PF 100MCG/2 ML INJ ONE (14:59)
[2018-04-03] MEDS ORDERED: MIDAZOLAM HCL 2 MG/2 ML VIAL ONE ×2 (14:59→15:02)
[2018-04-03] MEDS ORDERED: MEPERIDINE HCL INJ 25 MG/ML VIAL ONE (15:16)
--- OUTSIDE RECORDS SUMMARY | 2018-04-03 15:34 | XMS REPORT | Clinical Summary ---
Author Author [employer] Organization [employer] Address Unknown Phone Unavailable Care Team Providers Care Flatlock Sewing Machine Operator Name Role Phone Gerardo Valdes PCP Allergies [...] Taken Vital Sign Reading 04/18/2017 9:15 PM CASH MANAGEMENT SPECIALIST Blood Pressure 104/60 04/18/2017 9:15 PM CASH MANAGEMENT SPECIALIST Pulse 81 04/18/2017 6:25 PM CASH MANAGEMENT SPECIALIST Temperature 35.8 C (96.4 F) 04/18/2017 9:15 PM CASH MANAGEMENT SPECIALIST Respiratory Rate 21 04/18/2017 9:15 PM CASH MANAGEMENT SPECIALIST Oxygen Saturation 100% - Inhaled Oxygen - Concentration 04/18/2017 6:23 PM CASH MANAGEMENT SPECIALIST Weight 74.8 kg (165 lb) 04/18/2017 6:23 PM CASH MANAGEMENT SPECIALIST Height 162.6 cm (5' 4") 04/18/2017 6:23 PM CASH MANAGEMENT SPECIALIST Body Mass Index 28.32 Plan of Treatment [...] ANGIOGRAM PE CHEST STAT 04/18/2017 8:52 PM CASH MANAGEMENT SPECIALIST ZZESTIMATED GFR STAT 04/18/2017 7:33 PM CASH MANAGEMENT SPECIALIST HCG QUALITATIVE, SERUM STAT 04/18/2017 SCREEN 7:33 PM CASH MANAGEMENT SPECIALIST B NATRIURETIC PEPTIDE STAT 04/18/2017 7:33 PM CASH MANAGEMENT SPECIALIST TROPONIN STAT 04/18/2017 7:33 PM CASH MANAGEMENT SPECIALIST CREATINE KINASE, TOTAL STAT 04/18/2017 (CPK) 7:33 PM CASH MANAGEMENT SPECIALIST BASIC METABOLIC PANEL STAT 04/18/2017 7:33 PM CASH MANAGEMENT SPECIALIST HC COMPLETE BLD COUNT STAT 04/18/2017 W/AUTO DIFF 7:33 PM CASH MANAGEMENT SPECIALIST ECG 12-LEAD STAT 04/18/2017 6:26 PM CASH MANAGEMENT SPECIALIST after 04/02/2017 Results * CT Chest W [...] or blastic lesions involving the regional skeleton. [id number] Procedure Note Hm Interface, Radiology Results Incoming [...] or blastic lesions involving the regional skeleton. [id number] Performing Organization Address City/State/Zipcode Phone Number [facility] [address] [place] [address] * NM Bone Scan Whole Body (06/10/2017 2:27 PM CDT) Narrative Performed At PROCEDURE:NM BONE SCAN WHOLE BODY [facility] INDICATION:Breast cancer. COMPARISON:No comparison bone scan.CT scan [...] 1.No scintigraphic evidence of osseous metastatic disease. [facility]-[id number] Procedure Note [facility], Radiology Results Incoming - 06/10/2017 2:36 PM [...] No scintigraphic evidence of osseous metastatic disease. [facility]-[id number] Performing Organization Address City/State/Zipcode Phone Number [facility] [address] [place] [address] * CT Chest W Contrast Abdomen W [...] benign postinflammatory nodule and can be followed. [id number] Procedure Note Interface, Radiology Results Incoming - [...] benign postinflammatory nodule and can be followed. [id number] Performing Organization Address City/State/Zipcode Phone Number [facility] [address] [place] [address] * CT Angiogram Pe Chest (04/18/2017 8:52 PM CASH MANAGEMENT SPECIALIST) Narrative Performed At CT ANGIOGRAM PE CHEST [facility] CLINICAL INDICATION: chest pain tachycardia breast cancer [...] Lungs without focal or confluent airspace consolidation. [facility]-[id number] Procedure Note Interface, Radiology Results Incoming - 04/18/2017 9:01 PM CASH MANAGEMENT SPECIALIST CT ANGIOGRAM PE CHEST CLINICAL INDICATION: chest [...] Lungs without focal or confluent airspace consolidation. [facility]-[id number] Performing Organization Address City/State/Zipcode Phone Number [facility] [address] [place] [address] * Estimated GFR (04/18/2017 7:33 PM CASH MANAGEMENT SPECIALIST) GFR Non Af Amer 89 mL/min/1.73 m2 [facility] DEPARTMENT OF PATHOLOGY AND GENOMIC MEDICINE GFR Af Amer >90 mL/min/1.73 m2 [facility] DEPARTMENT OF Comment: PATHOLOGY AND Chronic kidney [...] Americans. Specimen Plasma specimen Performing Organization Address City/[facility] Phone Number [address] [place] [address] PATHOLOGY [facility] * Troponin (04/18/2017 7:33 PM CASH MANAGEMENT SPECIALIST) Troponin <0.300 0.000 - 0.300 ng/mL [facility] DEPARTMENT OF Comment: PATHOLOGY AND 0.30 - 1.49 GENOMIC MEDICINE ng/mlMay indicate increased risk of acute coronary syndrome. >=1.5 ng/ml Consistent with acute myocardial infarction. The diagnostic value of a single normal or non-diagnostic result is questionable.Serial samples at 2-6 hour intervals are required to rule out acute myocardial injury. Specimen Plasma specimen Performing Organization Address [facility] Phone Number [address] [place] [address] PATHOLOGY AND [facility] * CBC with platelet and differential (04/18/2017 7:33 PM CASH MANAGEMENT SPECIALIST) WBC 3.93 (L) 4.50 - 11.00 k/uL [facility] DEPARTMENT OF PATHOLOGY AND GENOMIC MEDICINE RBC 4.16 (L) 4.20 - 5.50 m/uL [facility] DEPARTMENT OF PATHOLOGY AND GENOMIC MEDICINE HGB 12.9 12.0 - 16.0 g/dL [facility] DEPARTMENT OF PATHOLOGY AND GENOMIC MEDICINE HCT 37.5 37.0 - 47.0 % [facility] DEPARTMENT OF PATHOLOGY AND GENOMIC MEDICINE MCV 90.1 82.0 - 100.0 fL [facility] DEPARTMENT OF PATHOLOGY AND GENOMIC MEDICINE MCH 31.0 27.0 - 34.0 pg [facility] DEPARTMENT OF PATHOLOGY AND GENOMIC MEDICINE MCHC 34.4 31.0 - 37.0 g/dL [facility] DEPARTMENT OF PATHOLOGY AND GENOMIC MEDICINE RDW - SD 39.0 37.0 - 55.0 fL [facility] DEPARTMENT OF PATHOLOGY AND GENOMIC MEDICINE MPV 9.2 8.8 - 13.2 fL [facility] DEPARTMENT OF PATHOLOGY AND GENOMIC MEDICINE Platelet count 268 150 - 400 k/uL [facility] DEPARTMENT OF PATHOLOGY AND GENOMIC MEDICINE Nucleated RBC 0.00 /100 WBC [facility] DEPARTMENT OF PATHOLOGY AND GENOMIC MEDICINE Neutrophils 56.7 39.0 - 69.0 % [facility] DEPARTMENT OF PATHOLOGY AND GENOMIC MEDICINE Lymphocytes 26.0 25.0 - 45.0 % [facility] DEPARTMENT OF PATHOLOGY AND GENOMIC MEDICINE Monocytes 14.5 (H) 0.0 - 10.0 % [facility] DEPARTMENT OF PATHOLOGY AND GENOMIC MEDICINE Eosinophils 2.0 0.0 - 5.0 % [facility] DEPARTMENT OF PATHOLOGY AND GENOMIC MEDICINE Basophils 0.5 0.0 - 1.0 % [facility] DEPARTMENT OF PATHOLOGY AND GENOMIC MEDICINE Immature granulocytes 0.3Comment: "Immature 0.0 - 1.0 % [facility] DEPARTMENT OF granulocytes" (promyelocytes, PATHOLOGY AND myelocytes, metamyelocytes) GENOMIC MEDICINE Specimen Blood Performing Organization Address [facility] Phone Number [address] [place] [address] PATHOLOGY AND [facility] MEDICINE * hCG qualitative, serum screen (04/18/2017 7:33 PM CASH MANAGEMENT SPECIALIST) hCG qualitative, serum Negative [facility] DEPARTMENT PATHOLOGY AND GENOMIC MEDICINE Specimen Blood Performing Organization Address [facility]/[address] [place] [address] PATHOLOGY [facility] MEDICINE * B natriuretic peptide (04/18/2017 7:33 PM CASH MANAGEMENT SPECIALIST) BNP 2 0 - 100 pg/mL [facility] DEPARTMENT PATHOLOGY AND GENOMIC MEDICINE Specimen Blood Performing Organization Address [facility] Number [address] [place] [address] PATHOLOGY [facility] * Creatine kinase, total (CPK) (04/18/2017 7:33 PM CASH MANAGEMENT SPECIALIST) Creatine kinase 82 26 - 192 U/L [facility] DEPARTMENT OF PATHOLOGY AND GENOMIC MEDICINE Specimen Plasma specimen Performing Organization Address [facility] Phone Number [address] [place] [phone] PATHOLOGY AND [facility] * Basic metabolic panel (04/18/2017 7:33 PM CASH MANAGEMENT SPECIALIST) Sodium 139 135 - 148 mEq/L [facility] DEPARTMENT OF PATHOLOGY AND GENOMIC MEDICINE Potassium 3.8 3.5 - 5.0 mEq/L [facility] DEPARTMENT OF PATHOLOGY AND GENOMIC MEDICINE Chloride 99 98 - 112 mEq/L [facility] DEPARTMENT OF PATHOLOGY AND GENOMIC MEDICINE CO2 25 24 - 31 mEq/L [facility] DEPARTMENT OF PATHOLOGY AND GENOMIC MEDICINE Anion gap 15 7 - 15 mEq/L [facility] DEPARTMENT OF Comment: PATHOLOGY AND Starting from June [facility] , anion gap calculation no longer incorporates potassium. Please note the change. BUN 20 6 - 20 mg/dL [facility] DEPARTMENT OF PATHOLOGY AND GENOMIC MEDICINE Creatinine 0.7 0.5 - 0.9 mg/dL [facility] DEPARTMENT OF PATHOLOGY AND GENOMIC MEDICINE Glucose 98 65 - 99 mg/dL [facility] OF PATHOLOGY AND GENOMIC MEDICINE Calcium 9.8 8.3 - 10.2 mg/dL [facility] OF PATHOLOGY AND GENOMIC [facility] Specimen Plasma specimen Performing Organization Address City/[facility] Phone Number [address] [place] [address] PATHOLOGY AND [facility] * ECG 12 lead (04/18/2017 6:26 PM CASH MANAGEMENT SPECIALIST) Ventricular rate 118 [facility] Atrial rate 118 [facility] IA interval 118 [facility] QRSD interval 72 [facility] QT interval 310 [facility] QTC interval 434 [facility] P axis 1 75 [facility] QRS axis 1 64 [facility] T wave axis 18 [facility] EKG impression Sinus tachycardia-Otherwise [facility] MUSE normal ECG-No previous ECGs available- Performing Organization Address City/State/Zipcode Phone Number [facility] MUSE [address] [place] [address] after 04/02/2017 Insurance Payer Benefit Subscriber ID Type Phone Address Plan / Group [facility] xxxxxxxxx HMO/PPO THCARE CHOICE/CHO ICE + Advance Directives Patient has advance care planning documents on file. For more information, freddy armas contact: Abdon Verdugo [address] [place] [address]
[2018-04-03 16:00] VITALS: BP 133/81
[2018-04-03 16:15] VITALS: BP 133/81
[2018-04-03 16:21] VITALS: BP 133/81
[2018-04-03] MEDS ORDERED: CYCLOBENZAPRINE HCL 10 MG TAB PO PRN (17:00)
[2018-04-03] MEDS ORDERED: DEXTROSE 5%/0.45% SOD CHL 1,000 ML IV ONE (17:00)
[2018-04-03] MEDS ORDERED: ONDANSETRON HCL INJ 2 MG/ML VIAL IV PRN (17:00)
[2018-04-03] MEDS ORDERED: HYDROCODONE/APAP 10MG-325MG TAB PO PRN (17:00)
[2018-04-03] MEDS ORDERED: HYDROMORPHONE 1MG/1ML INJ IV PRN (17:00)
[2018-04-03] MEDS: HYDROMORPHONE 2MG/ML 2 MG/ML ML IV PRN (18:25)
[2018-04-03] MEDS ORDERED: ALPRAZOLAM 0.5 MG TAB PO PRN ×2 (18:30→19:30)
[2018-04-03] MEDS ORDERED: ALPRAZOLAM 0.5 MG TAB PO SCH (18:30)
--- NOTE | 2018-04-03 19:15 | NUR ---
rounded with high voltage electrician nurse, patient aware of change. Patient in no distress, call montaño within reach.
[2018-04-03 20:00] VITALS: BP 116/72
[2018-04-03] MEDS ORDERED: SEVOFLURANE INHAL SOLN 250 ML PEN BTL ONE (21:40)
[2018-04-03] MEDS ORDERED: PROPOFOL IV EMULSION 10 MG/ML 20 ML VIAL ONE (21:40)
[2018-04-03] MEDS ORDERED: ROCURONIUM BROMIDE 10 MG/ML 5ML VIAL ONE (21:40)
[2018-04-03] MEDS ORDERED: LIDOCAINE HCL 2% LOCAL INJ 5 ML SDV VIAL INJ ONE (21:40)
[2018-04-03] MEDS ORDERED: ACETAMINOPHEN 1000 MG/100 ML IV ONE (21:40)
[2018-04-03] MEDS ORDERED: NEOSTIGMINE 5 MG/5ML SYR ONE (21:40)
[2018-04-03] MEDS ORDERED: GLYCOPYRROLATE INJ 1MG/ 5 ML SYR ONE (21:40)
[2018-04-03] MEDS ORDERED: ONDANSETRON HCL INJ 2 MG/ML VIAL ONE (21:40)
[2018-04-03] MEDS ORDERED: DEXAMETHASONE SOD PHOS INJ 4 MG/ML VIAL ONE (21:40)
[2018-04-03] MEDS: ALPRAZOLAM 0.5 MG TAB PO SCH (21:55)
[2018-04-03] MEDS: CEFAZOLIN SOD 1 GM/D5W 50ML 50 ML IV SCH (21:55)
[2018-04-04] VITALS: BP 108/65
[2018-04-04] MEDS: HYDROMORPHONE 2MG/ML 2 MG/ML ML IV PRN ×2 (00:26→06:29)
[2018-04-04 04:00] VITALS: BP 111/64
[2018-04-04] MEDS: CEFAZOLIN SOD 1 GM/D5W 50ML 50 ML IV SCH (06:29)
--- NOTE | 2018-04-04 08:11 | NUR ---
dressing to right breast dry and intact. ANNE drain and hemovac in place both with straight bloody drainage.
[2018-04-04] MEDS: ALPRAZOLAM 0.5 MG TAB PO SCH (08:16)
[2018-04-04 08:30] VITALS: BP 109/54
--- NOTE | 2018-04-04 08:52 | NUR ---
SOCIAL WORK INITIAL ASSESSMENT Chief Informatics Officer to bedside to discuss plan of care with patient/family. CM/SW role and care transitions discussed. Anticipated discharge plan discussed along with duration of care. CM/SW discussed patients right to make decisions in care. CM/SW work hours given. Patient [facility]: [facility] Admit/Transfer: VIA ED POA/Emergency contact: PETER [phone] Current/Previous Home Health: NONE PCP/Follow-up Care: MEL DELGADO Current/Previous DME: NONE Other Services: BEEN BATTLING BREAST CANCER FOR SEVERAL YEARS NOT CURRENTLY IN CHEMO OR RADIATION BUT DOCS ARE ALL IN [facility] Employment Status: HOUSEWIFE Areas of Concerns: NONE Referral Needs: NONE Education Needs: NONE IMM/GUZMAN given and signed (if applicable): NA Goal for discharge: RETURN HOME INDEPENDENTLY CM/SW left business card at the bedside with contact information. Name and number was also written on the patients whiteboard. Patient verbalized understanding of discussion. CM will follow-up with ongoing discharge and transition of care needs.
[2018-04-04] MEDS ORDERED: ALPRAZOLAM 0.5 MG TAB PO SCH (09:00)
[2018-04-04 09:28] VITALS: BP 109/54
[2018-04-04 12:00] VITALS: BP 111/61
--- NOTE | 2018-04-09 18:09 | Operative Report ---
DATE OF PROCEDURE: April 03, 2018 PREOPERATIVE DIAGNOSES 1. History of breast cancer. 2. Acquired absence of bilateral breasts. 3. Impending exposure of cohesive silicone gel breast implant, right breast. POSTOPERATIVE DIAGNOSES 1. History of breast cancer. 2. Acquired absence of bilateral breasts. 3. Impending exposure of cohesive silicone gel breast implant, right breast. PROCEDURES PERFORMED: 1. Removal of intact cohesive submuscular silicone gel breast implant. 2. Right breast reconstruction with pedicled latissimus dorsi flap bed and new cohesive silicone gel breast implant. Pat WELLER cohesive SCF 485 mL. SN number on the right [id number]. ANESTHESIA: General endotracheal. INDICATIONS FOR SURGERY: This is a 52-year-old female who approximately 2 years ago underwent bilateral mastectomies and reconstruction with tissue expanders and AlloDerm. The patient subsequently had chemotherapy and radiation and last year underwent exchange of bilateral breast tissue expanders with cohesive silicone gel implants. The patient is currently presenting with pending exposure of right breast silicone gel implant and requires coverage of radiated skin with latissimus dorsi pedicled flap as well as placement of a new cohesive silicone gel breast implant. The risks, alternatives, and possible complications of the above procedure were explained to the patient. These include but are not limited to bleeding, infection, scarring, asymmetry, wound dehiscence, exposure or failure of silicone gel implant, seroma formation, latissimus dorsi flap necrosis, capsule formation, skin flap necrosis, breast asymmetry, deep venous thrombosis, pulmonary embolism, unsatisfactory esthetic result, and possible need for further surgery. The patient had an opportunity to ask questions and have her questions answered and agreed to proceed with the proposed procedure. PROCEDURE IN DETAIL: The patient was marked in the preoperative holding area. She was then taken to the operating room and placed supine on the operating table. After adequate general anesthesia, a Glynn was placed and the patient was placed in the lateral decubitus position. The preoperative markings were rechecked, and the patient was marked for latissimus dorsi flap reconstruction of the right side with a flap of 7 x 14 cm skin paddle. An incision was then made, first along the previous mastectomy incision on the right side, and the exposed necrotic skin was resected and sent to pathology for permanent. The silicone gel implant, which was a Marquette 560 mL MemoryShape Xtra implant, was removed and it was intact. The breast pocket was irrigated with normal saline with antibiotic solution, and the residual AlloDerm was removed. Extensive capsulotomy was then performed with the help of the Isaiah Mantilla and Norman retractor as well as headlight, and some portion of the capsule was removed as well. The pocket was again irrigated with normal saline with antibiotic solution and checked for hemostasis and then packed with saline-soaked lap. Attention was then turned to the patient's right back. The preoperative markings for latissimus dorsi pedicled flap reconstruction were rechecked again. The size of the flap was 7 x 14 cm, and the incisions were created around the skin island with number 10 blade. The skin flaps were elevated at the level of the subcutaneous fat both anteriorly and posteriorly above the latissimus dorsi muscle. The incisions were beveled to maintain a layer of fat over the latissimus muscle and provide extra bulk and improve contouring. The insertions of the latissimus muscles were incised circumferentially with the Bovie, and the flap was elevated. The plane dissection was then identified beneath the latissimus muscle yet superficial to the remaining musculature of the posterior thorax. The latissimus muscle was then elevated from its origin, proceeding from distal to proximal to proximally medially. Coalition was excised to identify the medial and lateral rows of the segmental arteries that feed the muscles. The perforators that arise from the lumbar and intercostal arteries were ligated with medium-sized clips to ensure hemostasis and to prevent postoperative hematoma. The space between the latissimus dorsi muscle and the serratus anterior muscle was enlarged with blunt dissection, and caution was observed not to dissect under the serratus muscle but between the serratus and latissimus. Once the latissimus was from the serratus, the pedicle became visible as the flap was elevated towards the axilla. The flap dissection continued proximally to the level of the branches from the serratus anterior muscle. Once the flap was completely elevated, attention was turned anteriorly. A 4 to 5 cm pocket was created between the breast pocket and the latissimus dorsi dissection. Once the tunnel was created, the skin paddle was sutured to the muscle with 3-0 Vicryl sutures and then carefully tunneled to the tunnel connecting the breast pocket and the latissimus dorsi donor site pocket. Once the latissimus dorsi flap was tunneled, it was placed under the mastectomy flap and left to recover its blood supply while the donor site was closed. The donor site was irrigated with normal saline with antibiotic solution and checked for hemostasis. A number 10 round Hemovac drain was placed under the latissimus dorsi donor site, exiting anteriorly and inferiorly, and sutured in place with 2-0 nylon sutures. The donor site was then closed with interrupted 2-0 Vicryl sutures, and an INSORB stapler was used in subcutaneous tissue as well as a running subcuticular 3-0 PDO Quill suture. After the completion of the wound closure of the donor site, attention was turned again to the anterior portion of the right breast pocket. The latissimus dorsi flap was inset by suturing it along the inframammary fold with interrupted 3-0 Vicryl sutures. A sizer was then placed to ensure that the newly selected Natrelle cohesive silicone gel implant was symmetric with the opposite breast and could fit in the newly created breast pocket. A Natrelle INSPIRA cohesive SCF 485 mL implant was selected and placed in the subpectoral fashion and also under the latissimus dorsi muscle. The latissimus dorsi flap was then sutured to the pectoralis major muscle with interrupted 3-0 Vicryl sutures. A number 10 flat ANNE was then placed under the mastectomy flaps and above the latissimus dorsi flap and sutured in place with 2-0 nylon sutures, exiting laterally along the inframammary fold. The latissimus dorsi flap was then inset and sutured to the mastectomy flaps with interrupted 3-0 Vicryl sutures in subcutaneous tissue and a running subcuticular 3-0 PDO Quill suture. At the end of the case, the latissimus dorsi flap appeared viable. The breast skin flaps appeared viable as well. The donor site flaps were viable also. The donor site was covered with Coverlets. The latissimus dorsi flap was covered with Xeroform and ABD pads. The Glynn was discontinued before the end of the case. The patient tolerated the procedure well. There were no immediate complications. The needle and instrument count was correct at the end of the case, and she was transferred, extubated, to the recovery room. Job#: [id number]
== END 2018-04-04 13:55 | disposition home or self-care (01) ==
LOC: OR 09:08 → PACU V 15:01 → IMCU 16:08
PROVIDERS: ADMIT Plastic Surgery; ATTEND Plastic Surgery
DX: Z85.3 Personal history of malignant neoplasm of breast (principal); Z90.13 Acquired absence of bilateral breasts and nipples; F41.9 Anxiety disorder, unspecified; L59.8 Other specified disorders of the skin and subcutaneous tissue related to radiation; Y84.2 Radiological procedure and radiotherapy as the cause of abnormal reaction of the patient, or of later complication, without mention of misadventure at the time of the procedure
CPT/HCPCS: 19328; 19340; 19361; 36415; 80048; 85025; 85610; 85730; 88305; 93005; C1789; G0378 ×2; J0131; J0690 ×2; J1100; J1170 ×2; J2001; J2175; J2250; J2405; J2704; J3490; 88307